=== PATIENT | female | born 1990 | race Caucasian/White ===

== ENCOUNTER 2021-01-23 12:32 | Emergency (ER) | payer MEDICAID, SELFPAY ==
--- NOTE | ~2021-01-23 | US_ITS ---
EXAM: Pelvic Ultrasound CLINICAL INDICATION: Elevated hCG. Patient is status post tubal ligation. Question ectopic . COMPARISON: None TECHNIQUE: The pelvis was evaluated using transabdominal and transvaginal imaging. FINDINGS: Retroflexed uterus measures approximately 10.3 x 4.9 x 5.2 cm in longitudinal by AP by transverse dimension. The endometrial stripe measures 1.6 cm. No intrauterine gestational sac identified. The left ovary measures approximately 2.6 x 2.5 x 2.2 cm and is normal. The right ovary measures approximately 2.0 x 1.4 x 1.7 cm and is also normal. There are no abnormal adnexal masses. There is no free fluid in the pelvis. US/US OB <= 14 weeks fetus IMPRESSION: -No intrauterine gestational sac and no abnormal adnexal mass identified. Correlation with serial beta hCGs recommended. Follow-up ultrasound imaging can be obtained as clinically indicated.
--- NOTE | ~2021-01-23 | US_ITS ---
EXAM: Pelvic Ultrasound CLINICAL INDICATION: Elevated hCG. Patient is status post tubal ligation. Question ectopic . COMPARISON: None TECHNIQUE: The pelvis was evaluated using transabdominal and transvaginal imaging. FINDINGS: Retroflexed uterus measures approximately 10.3 x 4.9 x 5.2 cm in longitudinal by AP by transverse dimension. The endometrial stripe measures 1.6 cm. No intrauterine gestational sac identified. The left ovary measures approximately 2.6 x 2.5 x 2.2 cm and is normal. The right ovary measures approximately 2.0 x 1.4 x 1.7 cm and is also normal. There are no abnormal adnexal masses. There is no free fluid in the pelvis. US/US OB transvaginal IMPRESSION: -No intrauterine gestational sac and no abnormal adnexal mass identified. Correlation with serial beta hCGs recommended. Follow-up ultrasound imaging can be obtained as clinically indicated.
[2021-01-23 13:04] VITALS: BP 133/66; PULSE 98; RESP 18; TEMP 36.9; O2SAT 100; BMI 37.2
[2021-01-23 13:25] LABS: MANUAL DIFF FLAG NO
[2021-01-23 13:27] LABS: Basophils Percent Auto 0.4 % (0-2); Eosinophils Absolute Auto 0.2 X10*3/uL (0.0-0.4); Eosinophils Percent Auto 2.8 % (0-4); Hematocrit 37.9 % (37-47); Hemoglobin 12.3 g/dl (12.0-16.0); Imm Gran Abs Auto 0.02 X10*3/uL (0.00-0.03); Imm Gran Pct Auto 0.2 % (0.0-0.4); Lymphocytes Absolute Auto 2.3 X10*3/uL (1.2-4.9); Lymphocytes Percent Auto 27.6 % (20-40); Mean Corpuscular HGB Conc 32.5 g/dl (31.0-35.0); Mean Corpuscular Hemoglobin 29.4 pg (27.0-33.0); Mean Corpuscular Volume 90.7 fL (80-98); Mean Platelet Volume 9.5 fL (9.4-12.3); Monocytes Absolute Auto 0.8 X10*3/uL (0.1-1.2); Monocytes Percent Auto 9.3 % (2-11); Neutrophils Absolute Auto 4.9 X10*3/uL (2.0-8.3); Neutrophils Percent Auto 59.7 % (45-73); Platelet Count 360 X10*3/uL (160-400); Red Blood Count 4.18 X10*6/uL (4.20-5.50); Red Cell Distribution Width 12.6 % (11.0-16.0); White Blood Count 8.2 X10*3/uL (4.8-10.8)
[2021-01-23 13:34] LABS: Glucose Urine UA NEG (NEG); Leukocyte Esterase Urine NEG (NEG); Nitrite Urine NEG (NEG); Urine Blood TRACE (NEG); Urine Ketones 5 MG/DL (NEG); Urine Protein NEG (NEG-TRACE)
[2021-01-23 13:42] LABS: Appearance Urine CLEAR; Color Urine YELLOW
[2021-01-23 13:43] LABS: UPreg QC Valid YES; Urine Pregnancy POSITIVE (NEGATIVE)
[2021-01-23 13:51] LABS: RBC Urine 0-2 /HPF (0); Squamous Epithelial Cell Urine TRACE /LPF; WBC Urine 0 /HPF (0-4)
[2021-01-23 13:54] LABS: Alanine Aminotransferase 17 U/L (0-31); Albumin Level 4.2 g/dL (3.5-5.0); Alkaline Phosphatase 78 U/L (39-117); Anion Gap 13 (12-20); Aspartate Amino Transferase 18 U/L (5-31); Bilirubin Total 0.9 mg/dL (0.0-1.0); Blood Urea Nitrogen 8 mg/dL (9-16); Calcium 8.9 mg/dL (8.4-10.2); Carbon Dioxide 22 mmol/L (22-29); Chloride 104 mmol/L (96-108); Creatinine Clr Calc Pharmacy 136.8; Estimated Glomerular Filt Rate > 60; Glucose Random 100 mg/dL (60-115); Potassium 4.1 mmol/L (3.3-5.1); Sodium 135 mmol/L (135-145); Total Protein 7.6 g/dL (6.5-8.0)
--- NOTE | 2021-01-23 17:57 | ED_ITS ---
HPI - Abdominal Pain General Chief Complaint: Abdominal Pain Stated Complaint: Abdominal pain Time Seen by Provider: 01/23/21 17:57 Source: patient Mode of arrival: ambulatory Limitations: no limitations History of Present Illness HPI narrative: Patient is status post tubal ligation about 12 years ago, noticed pain in lower abdomen for last few days missed her menstrual period This month check urine 4 times which were positive no vaginal bleeding Related Data Allergies Allergy/AdvReac Type Severity Reaction Status Date / Time No Known Allergies Allergy Verified 01/23/21 18:10 Review of Systems Review of Systems Constitutional : No Weight loss, No Fever, No Chills ENT/Mouth : No sore throat, No Rhinorrhea Eyes: No Eye Pain, No Swelling Cardiovascular : No Chest Pain, no palpitations Respiratory : No Cough, No Sputum, no shortness of breath Gastrointestinal : + Nausea, + Vomiting, No Diarrhea, + abdominal Pain, no black stools Genitourinary : No Dysuria, No Urinary Frequency Musculoskeletal : No joint pain, No Myalgias, No Joint Swelling Skin : No Skin Lesions, No rash Neuro : No Weakness, No Numbness, No Dizziness, No Headache Psych : No Anxiety/Panic, No Depression Heme/Lymph: No Bruising, No Lymphadenopathy Endocrine : No Polyuria, No Polydipsia All other systems reviewed and are negative Physical Exam Vital Signs: Vital Signs: Last Vital Signs Temp 98.4 F 01/23/21 20:16 Pulse 102 H 01/23/21 20:16 Resp 18 01/23/21 20:16 BP 113/43 L 01/23/21 20:16 Pulse Ox 100 01/23/21 13:04 Body Mass Index 37.2 Appearance: Alert. Oriented X3. No acute distress. Eyes: Pupils equal, round and reactive to light. ENT: Pharynx normal. Neck: Normal inspection. Neck supple. CVS: Normal heart rate and rhythm. Pulses normal. Respiratory: No respiratory distress. Breath sounds normal. Abdomen: Soft mild suprapubic tenderness Bowel sounds are present, no mass palpable, no CVA tenderness Skin: Skin warm and dry. Normal skin color. Normal skin turgor. Extremities: No lower extremity edema. Neuro: Oriented X 3. No motor deficit. No sensory deficit. MDM - Abdominal Pain MDM Narrative Medical decision making narrative: Patient about 5 weeks no IUP/ gestation sac was seen HCG is only 474 patient has no significant lower abdominal pain. Advised to follow up with haul cane brakeman in next 2 -3 days Lab Data Attestation: I reviewed the patient's lab results. Result diagrams: 01/23/21 13:18 01/23/21 13:18 Labs: Lab Results 01/23/21 01/23/21 01/23/21 Range/Units 13:18 13:18 13:18 WBC 8.2 (4.8-10.8) X10*3/uL RBC 4.18 L (4.20-5.50) X10*6/uL Hgb 12.3 (12.0-16.0) g/dl Hct 37.9 (37-47) % MCV 90.7 (80-98) fL MCH 29.4 (27.0-33.0) pg MCHC 32.5 (31.0-35.0) g/dl RDW 12.6 (11.0-16.0) % Plt Count 360 (160-400) X10*3/uL MPV 9.5 (9.4-12.3) fL Immature Gran % (Auto) 0.2 (0.0-0.4) % Neut % (Auto) 59.7 (45-73) % Lymph % (Auto) 27.6 (20-40) % [place] % (Auto) 9.3 (2-11) % Eos % (Auto) 2.8 (0-4) % Baso % (Auto) 0.4 (0-2) % Lymph # (Auto) 2.3 (1.2-4.9) X10*3/uL [place] # (Auto) 0.8 (0.1-1.2) X10*3/uL Eos # (Auto) 0.2 (0.0-0.4) X10*3/uL Baso # (Auto) 0.0 (0.0-0.2) X10*3/uL Abs Immat Gran (auto) 0.02 (0.00-0.03) X10*3/uL Absolute Neuts (auto) 4.9 (2.0-8.3) X10*3/uL Absolute Nucleated RBC 0.000 (0.0-0.012) X10*3/uL Nucleated RBC % (auto) 0.0 (0.0-0.2) /100WBC Hold Blue Top SEE NOTE Sodium 135 (135-145) mmol/L Potassium 4.1 (3.3-5.1) mmol/L Chloride 104 (96-108) mmol/L Carbon Dioxide 22 (22-29) mmol/L Anion Gap 13 (12-20) BUN 8 L (9-16) mg/dL Creatinine 0.66 (0.5-1.4) mg/dL Estim Creat Clear Calc 136.8 Estimated GFR > 60 Random Glucose 100 (60-115) mg/dL Calcium 8.9 (8.4-10.2) mg/dL Total Bilirubin 0.9 (0.0-1.0) mg/dL AST 18 (5-31) U/L ALT 17 (0-31) U/L Alkaline Phosphatase 78 (39-117) U/L Total Protein 7.6 (6.5-8.0) g/dL Albumin 4.2 (3.5-5.0) g/dL Beta HCG, Quant 474 mIU/mL Urine Color Urine Appearance Urine pH (5.0-8.0) Ur Specific [place] (1.005-1.025) Urine Protein (NEG-TRACE) MG/DL Urine Glucose (UA) (NEG) MG/DL Urine Ketones (NEG) MG/DL Urine Blood (NEG) Urine Nitrite (NEG) Ur Leukocyte Esterase (NEG) Urine RBC (0) /HPF Urine WBC (0-4) /HPF Ur Squamous Epith Cells /LPF Urine Bacteria /LPF Urine Test (NEGATIVE) 01/23/21 01/23/21 Range/Units 13:18 13:18 WBC (4.8-10.8) X10*3/uL RBC (4.20-5.50) X10*6/uL Hgb (12.0-16.0) g/dl Hct (37-47) % MCV (80-98) fL MCH (27.0-33.0) pg MCHC (31.0-35.0) g/dl RDW (11.0-16.0) % Plt Count (160-400) X10*3/uL MPV (9.4-12.3) fL Immature Gran % (Auto) (0.0-0.4) % Neut % (Auto) (45-73) % Lymph % (Auto) (20-40) % [place] % (Auto) (2-11) % Eos % (Auto) (0-4) % Baso % (Auto) (0-2) % Lymph # (Auto) (1.2-4.9) X10*3/uL [place] # (Auto) (0.1-1.2) X10*3/uL Eos # (Auto) (0.0-0.4) X10*3/uL Baso # (Auto) (0.0-0.2) X10*3/uL Abs Immat Gran (auto) (0.00-0.03) X10*3/uL Absolute Neuts (auto) (2.0-8.3) X10*3/uL Absolute Nucleated RBC (0.0-0.012) X10*3/uL Nucleated RBC % (auto) (0.0-0.2) /100WBC Hold Blue Top Sodium (135-145) mmol/L Potassium (3.3-5.1) mmol/L Chloride (96-108) mmol/L Carbon Dioxide (22-29) mmol/L Anion Gap (12-20) BUN (9-16) mg/dL Creatinine (0.5-1.4) mg/dL Estim Creat Clear Calc Estimated GFR Random Glucose (60-115) mg/dL Calcium (8.4-10.2) mg/dL Total Bilirubin (0.0-1.0) mg/dL AST (5-31) U/L ALT (0-31) U/L Alkaline Phosphatase (39-117) U/L Total Protein (6.5-8.0) g/dL Albumin (3.5-5.0) g/dL Beta HCG, Quant mIU/mL Urine Color YELLOW Urine Appearance CLEAR Urine pH 7.0 (5.0-8.0) Ur Specific [place] 1.010 (1.005-1.025) Urine Protein NEG (NEG-TRACE) MG/DL Urine Glucose (UA) NEG (NEG) MG/DL Urine Ketones 5 (NEG) MG/DL Urine Blood TRACE (NEG) Urine Nitrite NEG (NEG) Ur Leukocyte Esterase NEG (NEG) Urine RBC 0-2 (0) /HPF Urine WBC 0 (0-4) /HPF Ur Squamous Epith Cells TRACE /LPF Urine Bacteria NONE /LPF Urine Test POSITIVE H (NEGATIVE) Discharge Plan Discharge Clinical Impression: at early stage Patient Disposition: Home, Self-Care Instructions: (ED) Additional Instructions: Report to the ER if any lower abdominal pain. Or vaginal bleed Follow-up with OB doctor Informe a la tran de emergencias si tiene alg?n dolor en la parte inferior del abdomen. O sangrado vaginal Seguimiento con el m?dico obstetra Referrals: Bharat Umaña MD [Physician] - 1 week Print Language: Estonian [facility] Past Medical History Medical History No active medical problems Social History Social History Advance Directives: No Advance Directives Information Provided: Yes
[2021-01-23 18:29] VITALS: BP 109/65; PULSE 99; RESP 18; TEMP 37
[2021-01-23 18:38] LABS: HCG Quantitative 474 mIU/mL
[2021-01-23 20:16] VITALS: BP 113/43; PULSE 102; RESP 18; TEMP 36.9
== END 2021-01-23 21:03 | disposition home or self-care (01) ==
PROVIDERS: Emergency Provider Internal Medicine
DX: O26.91 Pregnancy related conditions, unspecified, first trimester (principal); R10.30 Lower abdominal pain, unspecified; Z3A.01 Less than 8 weeks gestation of pregnancy
CPT/HCPCS: 36415; 76801; 76817; 80053; 81001; 81025; 84702; 85025; 99283; 99284

== ENCOUNTER 2021-02-06 08:19 | Outpatient (REF) | payer MEDICAID, SELFPAY ==
[2021-02-06 11:03] LABS: HCG Quantitative 6 mIU/mL
== END 2021-02-06 08:20 | disposition home or self-care (01) ==
LOC: HO.LAB 08:19
PROVIDERS: Visit Provider Obstetrics & Gynecology
DX: O00.90 Unspecified ectopic pregnancy without intrauterine pregnancy (principal)
CPT/HCPCS: 36415; 84702; 99202

== ENCOUNTER → 2021-02-19 15:09 | Outpatient (BNVA) | payer MEDICAID, SELFPAY | PROVIDERS: Visit Provider Obstetrics & Gynecology ==

== ENCOUNTER 2021-02-20 14:16 | Outpatient (REF) | payer MEDICAID, SELFPAY ==
[2021-02-20 15:37] LABS: HCG Quantitative < 2 mIU/mL
== END 2021-02-20 14:17 | disposition home or self-care (01) ==
LOC: HO.LAB 14:16
PROVIDERS: PCP Family Medicine; Visit Provider Obstetrics & Gynecology
DX: O00.90 Unspecified ectopic pregnancy without intrauterine pregnancy (principal)
CPT/HCPCS: 36415; 84702

== ENCOUNTER → 2021-11-15 15:31 | Outpatient (BNVA) | payer MEDICAID, SELFPAY | PROVIDERS: PCP Family Medicine; Referring Provider Family Medicine; Visit Provider Physician Assistant ==

== ENCOUNTER → 2021-12-20 08:11 | Outpatient (BNVA) | payer MEDICAID, SELFPAY | PROVIDERS: PCP Family Medicine; Visit Provider Surgery ==

== ENCOUNTER 2021-12-26 11:35 | Outpatient (REF) | payer MEDICAID, SELFPAY ==
--- NOTE | ~2021-12-26 | XR_ITS ---
EXAMINATION: XR CHEST CLINICAL INFORMATION: Morbid obesity COMPARISON: None TECHNIQUE: 2 views of the chest were obtained. FINDINGS: Cardiac silhouette is normal in size. Lungs are well aerated. There is no lobar consolidation. No pleural effusion or pneumothorax. No acute osseous abnormality. XR/XR chest 2V IMPRESSION: No acute pulmonary pathology.
--- NOTE | 2021-12-26 11:40 | ECG_ITS ---
Test Reason : E66.01 Blood Pressure : / mmHG Vent. Rate : 086 BPM Atrial Rate : 086 BPM P-R Int : 140 ms QRS Dur : 068 ms QT Int : 374 ms P-R-T Axes : 063 013 029 degrees QTc Int : 447 ms Normal sinus rhythm Normal ECG No previous ECGs available Referred By: Tano Brewer Electronically Signed By:DIANA TOBIN MD
[2021-12-26 12:02] LABS: MANUAL DIFF FLAG NO
[2021-12-26 12:17] LABS: Basophils Percent Auto 0.3 % (0-2); Eosinophils Absolute Auto 0.4 X10*3/uL (0.0-0.4); Eosinophils Percent Auto 3.8 % (0-4); Hematocrit 41.1 % (37.0-47.0); Imm Gran Abs Auto 0.03 X10*3/uL (0.00-0.03); Imm Gran Pct Auto 0.3 % (0.0-0.4); Lymphocytes Absolute Auto 2.3 X10*3/uL (1.2-4.9); Mean Corpuscular HGB Conc 31.6 g/dl (31.0-35.0); Mean Corpuscular Hemoglobin 28.6 pg (27.0-33.0); Mean Corpuscular Volume 90.3 fL (80.0-98.0); Mean Platelet Volume 9.9 fL (9.4-12.3); Monocytes Absolute Auto 0.8 X10*3/uL (0.1-1.2); Monocytes Percent Auto 8.5 % (2-11); Neutrophils Percent Auto 63.1 % (45-73); Platelet Count 345 X10*3/uL (160-400); Red Blood Count 4.55 X10*6/uL (4.20-5.50); Red Cell Distribution Width 13.3 % (11.0-16.0); White Blood Count 9.5 X10*3/uL (4.8-10.8)
[2021-12-26 12:58] LABS: Estimated Average Glucose 111 mg/dL; Hemoglobin A1c % 5.5 %
[2021-12-26 13:33] LABS: Folate 12.3 ng/mL (> or = 4.0); Vitamin B12 203 pg/mL (200-900)
[2021-12-26 14:24] LABS: Alanine Aminotransferase 20 U/L (0-31); Albumin Level 4.1 g/dL (3.5-5.0); Alkaline Phosphatase 84 U/L (39-117); Anion Gap 12 (12-20); Aspartate Amino Transferase 15 U/L (5-31); Bilirubin Total 0.6 mg/dL (0.0-1.0); Blood Urea Nitrogen 8 mg/dL (9-16); Calcium 9.4 mg/dL (8.4-10.2); Carbon Dioxide 25 mmol/L (22-29); Chloride 106 mmol/L (96-108); Cholesterol 177 mg/dL; Estimated Glomerular Filt Rate > 60; Glucose Random 105 mg/dL (60-115); HDL Cholesterol 47 mg/dL; Iron 62 mcg/dL (30-160); LDL Cholesterol Calculated 112 mg/dl; Percent Iron Saturation 16 % (15-50); Potassium 4.7 mmol/L (3.3-5.1); Sodium 138 mmol/L (135-145); Total Iron Binding Capacity 385 mcg/dL (228-428); Total Protein 7.7 g/dL (6.5-8.0); Triglycerides 91 mg/dL; Unsaturated Iron Binding 323 ug/dL
[2021-12-26 14:34] LABS: Ferritin 37 ng/mL (10-122); Insulin 14 uU/mL (2-29); TSH reflex Free T4 1.15 uIU/mL (0.32-4.0); Vitamin D 25-OH Total 10.5 ng/mL (>30)
[2021-12-27 15:45] LABS: Calcium (PTHI) 9.5 mg/dL (8.6-10.2); PTHI 80 pg/mL (16-77)
[2021-12-31 03:37] LABS: Zinc 84 mcg/dL (60-130)
[2021-12-31 15:35] LABS: Vitamin B1 7 nmol/L (8-30)
[2022-01-02 10:57] LABS: Vitamin A 33 mcg/dL (38-98)
== END 2021-12-26 11:36 | disposition home or self-care (01) ==
LOC: HO.XRAY 11:35
PROVIDERS: Visit Provider Surgery
DX: Z01.818 Encounter for other preprocedural examination (principal); E66.01 Morbid (severe) obesity due to excess calories
CPT/HCPCS: 36415; 71046; 80053; 80061; 82306; 82607; 82728; 82746; 83036; 83525; 83540; 83970; 84425; 84443; 84590; 84630; 85025; 86140; 93005

== ENCOUNTER → 2022-01-01 12:58 | Outpatient (BNVA) | payer MEDICAID, SELFPAY | PROVIDERS: PCP Family Medicine; Referring Provider Family Medicine; Visit Provider Physician Assistant Surgical | DX: A04.8 Other specified bacterial intestinal infections (principal) | CPT/HCPCS: 99211 ==

== ENCOUNTER 2022-01-01 15:14 | Outpatient (REF) | payer MEDICAID, SELFPAY ==
[2022-01-02 14:31] LABS: H Pylori Breath Test Positive (Negative)
== END 2022-01-01 15:15 | disposition home or self-care (01) ==
LOC: HO.LNP 15:14
PROVIDERS: Visit Provider Surgery
DX: E66.01 Morbid (severe) obesity due to excess calories (principal)
CPT/HCPCS: 83013

== ENCOUNTER 2022-01-15 | Outpatient (REF) | payer MEDICAID, SELFPAY ==
[2022-02-11 12:58] LABS: H Pylori Breath Test Negative (Negative)
== END 2022-01-15 00:01 ==
LOC: HO.LAB
PROVIDERS: Physician Assistant; Visit Provider Surgery
DX: Z01.818 Encounter for other preprocedural examination (principal); Z11.0 Encounter for screening for intestinal infectious diseases
CPT/HCPCS: 36415; 83013

== ENCOUNTER → 2022-01-16 08:08 | Outpatient (BNVA) | payer MEDICAID, SELFPAY | PROVIDERS: PCP Family Medicine; Visit Provider Dietitian, Registered | DX: Z13.89 Encounter for screening for other disorder (principal) ==

== ENCOUNTER → 2022-01-27 08:02 | Outpatient (BNVA) | payer MEDICAID, SELFPAY | PROVIDERS: PCP Family Medicine; Visit Provider Surgery | DX: Z13.89 Encounter for screening for other disorder (principal) ==

== ENCOUNTER → 2022-01-29 08:07 | Outpatient (BNVA) | payer MEDICAID, SELFPAY | PROVIDERS: PCP Family Medicine; Visit Provider Dietitian, Registered | DX: E66.01 Morbid (severe) obesity due to excess calories (principal); Z68.39 Body mass index [BMI] 39.0-39.9, adult; Z71.3 Dietary counseling and surveillance | CPT/HCPCS: 97802 ==

== ENCOUNTER 2022-02-07 09:01 | Outpatient (REF) | payer MEDICAID, SELFPAY ==
--- NOTE | ~2022-02-07 | FL_ITS ---
EXAMINATION: XR FLUOROSCOPY UPPER GI WITH AIR CLINICAL INFORMATION: Obesity COMPARISON: None TECHNIQUE: The patient was administered thin and thick barium and effervescent granules. FINDINGS: There is a small sliding hiatal hernia. No gastroesophageal reflux is seen. Esophageal motility is normal. The stomach and duodenum are normal-appearing. No fold thickening, mass, ulcer or stricture is seen. FLUOROSCOPY TIME: 0.7 minutes DOSE AREA PRODUCT: 6 cervantes per centimeter squared. 26 saved fluoroscopic images. FL/FL upper GI w air IMPRESSION: Small sliding-type hiatal hernia otherwise unremarkable exam
== END 2022-02-07 09:02 | disposition home or self-care (01) ==
LOC: HO.XRAY 09:01
PROVIDERS: Visit Provider Surgery
DX: E66.01 Morbid (severe) obesity due to excess calories (principal)
CPT/HCPCS: 74246

== ENCOUNTER → 2022-02-10 12:55 | Outpatient (BNVA) | payer MEDICAID, SELFPAY | PROVIDERS: PCP Family Medicine; Referring Provider Family Medicine; Visit Provider Physician Assistant | DX: Z11.0 Encounter for screening for intestinal infectious diseases (principal) | CPT/HCPCS: 99211 ==

== ENCOUNTER 2022-02-11 12:53 | Outpatient (REF) | payer MEDICAID, SELFPAY ==
--- NOTE | ~2022-02-11 | US_ITS ---
EXAMINATION: US COMPLETE ABDOMEN WITH LIVER ELASTOGRAPHY CLINICAL INFORMATION: Morbid/severe obesity. COMPARISON: None. TECHNIQUE: Real-time imaging of the abdominal viscera. Noninvasive ultrasound liver fibrosis assessment is performed using Nilam ElastPQ point quantification shear wave elastography (2D-SWE) with a C5-2 MHz transducer. Multiple elastography samples are obtained. FINDINGS: PANCREAS: Normal. The visualized pancreatic head and body are normal in appearance. The remainder of the pancreas is obscured from visualization by the overlying bowel gas. ABDOMINAL AORTA: The proximal, middle, and distal aortic segments are normal in caliber. INFERIOR VENA CAVA: Visualized portions are normal. LIVER: The liver demonstrates normal size, contour and echogenicity. No focal lesion or intrahepatic biliary duct dilatation. The right lobe measures 13.5 cm in length. The left lobe measures 10.8 cm in length. Portal flow is hepatopedal. Shear wave liver elastography median stiffness is 2.08 m/s (reference: normal median stiffness is 1.3 m/s or less). IQR/median stiffness to assess sampling precision is 0.10 (reference: good quality data set is IQR/median stiffness of 0.15 or less). GALLBLADDER: Normal. The gallbladder is physiologically distended without evidence of stones, sludge, polyps, wall thickening or pericholecystic fluid. COMMON BILE DUCT: Normal in caliber measuring 0.21 cm in diameter. RIGHT KIDNEY: Normal. No hydronephrosis. No renal calculi or focal parenchymal lesions. The kidney measures 10.3 cm in maximum dimension. LEFT KIDNEY: Normal. No hydronephrosis. No renal calculi or focal parenchymal lesions. The kidney measures 11.6 cm in maximum dimension. SPLEEN: Normal. The spleen measures 9.8 cm in maximum dimension. FREE FLUID: None. US/US abdomen comp w elastography IMPRESSION: 1. Unremarkable complete abdomen ultrasound. 2. Liver elastography: Median liver stiffness 2.08 m/s corresponds to cACLD suggestive. REFERENCE: Society of Radiologists in Ultrasound Liver Stiffness Thresholds (2020): LIVER STIFFNESS THRESHOLDS: *Liver Stiffness equal or less than 1.3 m/s: High probability of being normal. *Liver Stiffness less than 1.7 m/s: In the absence of other known clinical signs, rules out compensated advanced chronic liver disease. *Liver Stiffness 1.7-2.1 m/s: Suggestive of compensated advanced chronic liver disease but need further test for confirmation. *Liver Stiffness over 2.1 m/s: Rules in compensated advanced chronic liver disease. *Liver Stiffness over 2.4 m/s: Suggestive of clinically significant portal hypertension. QUALITY OF DATA SET: *IQR/Median value equal or less than 0.15 implies a quality data set. *IQR/Median value over 0.15 implies a poor quality data set. SIGNIFICANT CHANGE FROM PRIOR EXAM: Significant change if liver stiffness measurement is 10% or greater from prior exam. OTHER CONSIDERATIONS: The stage of liver fibrosis may be overestimated in the setting of acute hepatitis, liver inflammation, elevated liver function tests, hepatic vascular congestion, obstructive cholestasis, non-fasting state, and infiltrative diseases such as amyloidosis and lymphoma. In some patients with NAFLD, the liver stiffness thresholds for compensated advanced chronic liver disease may be lower. In causes other than viral hepatitis and NAFLD, liver stiffness thresholds are not well established.
== END 2022-02-11 12:54 | disposition home or self-care (01) ==
LOC: HO.US 12:53
PROVIDERS: Visit Provider Surgery
DX: Z01.818 Encounter for other preprocedural examination (principal); E66.01 Morbid (severe) obesity due to excess calories; K21.9 Gastro-esophageal reflux disease without esophagitis
CPT/HCPCS: 76705; 76981

== ENCOUNTER → 2022-02-26 13:53 | Outpatient (BNVA) | payer MEDICAID, SELFPAY | PROVIDERS: PCP Family Medicine; Referring Provider Family Medicine; Visit Provider Dietitian, Registered | DX: E66.01 Morbid (severe) obesity due to excess calories (principal) | CPT/HCPCS: 97803 ==

== ENCOUNTER → 2022-04-11 14:52 | Outpatient (BNVA) | payer MEDICAID, SELFPAY | PROVIDERS: PCP Family Medicine; Referring Provider Family Medicine; Visit Provider Dietitian, Registered | DX: E66.9 Obesity, unspecified (principal); Z68.35 Body mass index [BMI] 35.0-35.9, adult; Z71.3 Dietary counseling and surveillance | CPT/HCPCS: 97803 ==

== ENCOUNTER → 2022-05-14 15:59 | Outpatient (BNVA) | payer MEDICAID, SELFPAY | PROVIDERS: PCP Family Medicine; Visit Provider Physician Assistant Surgical | DX: Z01.818 Encounter for other preprocedural examination (principal); E66.9 Obesity, unspecified; Z68.35 Body mass index [BMI] 35.0-35.9, adult | CPT/HCPCS: 99212 ==

== ENCOUNTER 2022-05-16 | Outpatient (REF) | payer MEDICAID, SELFPAY ==
[2022-05-15 15:46] VITALS: BMI 35.3
[2022-05-16 10:51] LABS: MANUAL DIFF FLAG NO
[2022-05-16 11:29] LABS: Basophils Percent Auto 0.3 % (0-2); Eosinophils Absolute Auto 0.2 X10*3/uL (0.0-0.4); Eosinophils Percent Auto 2.4 % (0-4); Hematocrit 38.8 % (37.0-47.0); Hemoglobin 12.6 g/dl (12.0-16.0); Imm Gran Abs Auto 0.02 X10*3/uL (0.00-0.03); Imm Gran Pct Auto 0.2 % (0.0-0.4); Lymphocytes Absolute Auto 1.8 X10*3/uL (1.2-4.9); Lymphocytes Percent Auto 20.6 % (20-40); Mean Corpuscular HGB Conc 32.5 g/dl (31.0-35.0); Mean Corpuscular Hemoglobin 28.7 pg (27.0-33.0); Mean Corpuscular Volume 88.4 fL (80.0-98.0); Mean Platelet Volume 10.1 fL (9.4-12.3); Monocytes Percent Auto 11.7 % (2-11); Neutrophils Absolute Auto 5.7 x10*3/uL (2.0-8.3); Neutrophils Percent Auto 64.8 % (45-73); Platelet Count 368 X10*3/uL (160-400); Red Blood Count 4.39 X10*6/uL (4.20-5.50); Red Cell Distribution Width 13.2 % (11.0-16.0); White Blood Count 8.8 X10*3/uL (4.8-10.8)
[2022-05-16 11:38] LABS: Estimated Average Glucose 103 mg/dL; Hemoglobin A1c % 5.2 %
[2022-05-16 11:46] LABS: Prothrombin Time 11.8 SEC (10.0-13.1)
[2022-05-16 11:48] LABS: Partial Thromboplastin Time 33.7 SEC (26.0-36.4)
[2022-05-16 12:01] LABS: Alanine Aminotransferase 11 U/L (0-31); Albumin Level 3.9 g/dL (3.5-5.0); Alkaline Phosphatase 65 U/L (39-117); Anion Gap 13 (12-20); Aspartate Amino Transferase 12 U/L (5-31); Bilirubin Total 0.8 mg/dL (0.0-1.0); Blood Urea Nitrogen 8 mg/dL (9-16); C Reactive Protein 1.48 mg/dL (< or = 0.50); Calcium 8.7 mg/dL (8.4-10.2); Carbon Dioxide 22 mmol/L (22-29); Chloride 107 mmol/L (96-108); Cholesterol 137 mg/dL; Creatinine Clr Calc Pharmacy 126.8; Estimated Glomerular Filt Rate > 60; Glucose Random 91 mg/dL (60-115); HDL Cholesterol 42 mg/dL; LDL Cholesterol Calculated 85 mg/dl; Potassium 4.1 mmol/L (3.3-5.1); Sodium 138 mmol/L (135-145); Total Protein 7.2 g/dL (6.5-8.0); Triglycerides 54 mg/dL
[2022-05-16 12:21] LABS: TSH reflex Free T4 0.98 uIU/mL (0.32-4.0)
--- NOTE | 2022-05-24 14:36 | MHC.SHP ---
Pre-Procedural Eval Section A Date of Service: 05/24/22 The patient is an INPATIENT: Yes The History & Physical has been completed within 30 days and I have reviewed it.: Yes Section B Chief Complaint: obesity Relevant Family History (Specify if Yes): No Relevant Social History: None Present Medications: None Medical History: No relevant PMH History of Previous Operations: No relevant previous surgery Allergies: Allergies Allergy/AdvReac Type Severity Reaction Status Date / Time No Known Allergies Allergy Verified 05/14/22 16:08 Review of Systems Sugical H&P ROS: Negative: Constitution, Cardiovascular, Respiratory, Neurological, Psychiatric, Hem-Onc, Allergic/Immunologic, Gastrointestinal, Genitourinary, Musculoskeletal, Integumentary, Endocrine and Eyes/Ears/Nose/Throat Exam Surgical H&P Exam: Normal: HEENT, Normal: Heart, Normal: Lungs, Normal: Extremities, Normal: Abdomen, Normal: Skin and Normal: Neurological Plan Diagnosis/Plan: Unchanged I have reviewed the history and physical and performed a pertinent physical examination on my patient. No changes have occurred unless specified.
== END 2022-05-16 00:01 ==
LOC: HO.PAT
PROVIDERS: Physician Assistant Surgical; Visit Provider Surgery
DX: Z01.818 Encounter for other preprocedural examination (principal); E66.9 Obesity, unspecified
CPT/HCPCS: 36415; 80053; 80061; 83036; 84443; 85025; 85610; 85730; 86140; 86850; 86900; 86901

== ENCOUNTER 2023-04-20 16:37 | Outpatient (REF) | payer MEDICAID, SELFPAY ==
[2023-04-20 18:41] LABS: Alanine Aminotransferase 15 U/L (0-31); Alkaline Phosphatase 66 U/L (39-117); Anion Gap 13 (12-20); Aspartate Amino Transferase 16 U/L (5-31); Bilirubin Total 0.3 mg/dL (0.0-1.0); Blood Urea Nitrogen 11 mg/dL (9-16); Calcium 8.8 mg/dL (8.4-10.2); Carbon Dioxide 22 mmol/L (22-29); Chloride 105 mmol/L (96-108); Estimated Glomerular Filt Rate > 60; Glucose Random 87 mg/dL (60-115); Potassium 3.6 mmol/L (3.3-5.1); Sodium 136 mmol/L (135-145); Total Protein 7.5 g/dL (6.5-8.0)
[2023-04-20 18:55] LABS: Syphilis Screen Nonreactive (Nonreactive)
[2023-04-20 18:56] LABS: Thyroid Stimulating Hormone 0.99 uIU/mL (0.32-4.0)
[2023-04-21 05:30] LABS: ~HepC Num1 0.12 S/CO (0.00-0.79); ~Hepatitis C Antibody Nonreactive (Nonreactive)
[2023-04-21 12:35] LABS: CT PCR NOT DETECTED (Not Detect.); NG PCR NOT DETECTED (Not Detect.)
[2023-04-23 15:38] LABS: HIV RNA PCR Qn Copies NOT DETECTED copies/mL (NOT DETECTED); HIV RNA PCR Qn Log Copies NOT DETECTED (NOT DETECTED)
== END 2023-04-20 16:38 | disposition home or self-care (01) ==
LOC: HO.HHCL 16:37
PROVIDERS: Visit Provider General Practice
DX: Z11.3 Encounter for screening for infections with a predominantly sexual mode of transmission (principal); Z11.4 Encounter for screening for human immunodeficiency virus [HIV]; E66.9 Obesity, unspecified
CPT/HCPCS: 0353U; 80053; 84443; 86780; 86803; 87536

== ENCOUNTER 2023-08-31 09:37 | Outpatient (REF) | payer MEDICAID, SELFPAY ==
[2023-08-31 11:11] LABS: MANUAL DIFF FLAG NO
[2023-08-31 11:32] LABS: Basophils Percent Auto 0.6 % (0-2); Eosinophils Absolute Auto 0.3 X10*3/uL (0.0-0.4); Eosinophils Percent Auto 5.2 % (0-4); Hematocrit 42.3 % (37.0-47.0); Hemoglobin 13.5 g/dl (12.0-16.0); Imm Gran Abs Auto 0.01 X10*3/uL (0.00-0.03); Imm Gran Pct Auto 0.2 % (0.0-0.4); Lymphocytes Absolute Auto 2.4 X10*3/uL (1.2-4.9); Mean Corpuscular HGB Conc 31.9 g/dl (31.0-35.0); Mean Corpuscular Volume 90.8 fL (80.0-98.0); Mean Platelet Volume 9.7 fL (9.4-12.3); Monocytes Absolute Auto 0.7 X10*3/uL (0.1-1.2); Monocytes Percent Auto 10.3 % (2-11); Neutrophils Absolute Auto 2.9 x10*3/uL (2.0-8.3); Neutrophils Percent Auto 45.7 % (45-73); Platelet Count 382 X10*3/uL (160-400); Red Blood Count 4.66 X10*6/uL (4.20-5.50); Red Cell Distribution Width 12.5 % (11.0-16.0); White Blood Count 6.3 X10*3/uL (4.8-10.8)
== END 2023-08-31 09:38 | disposition home or self-care (01) ==
LOC: HO.HHCL 09:37
PROVIDERS: Visit Provider General Practice
DX: R09.A2 Foreign body sensation, throat (principal)
CPT/HCPCS: 36415; 84443; 85025

== ENCOUNTER 2023-09-23 14:53 | Outpatient (RCR) | payer MEDICAID, SELFPAY | END 2023-12-11 12:57 | disposition home or self-care (01) | LOC: HO.OT 14:53 | PROVIDERS: PCP General Practice; Visit Provider General Practice | DX: G56.22 Lesion of ulnar nerve, left upper limb (principal) | CPT/HCPCS: 97035; 97166; 97535 ==

== ENCOUNTER 2024-02-02 12:14 | Outpatient (REF) | payer MEDICAID, SELFPAY ==
[2024-02-02 16:46] LABS: Alanine Aminotransferase 12 U/L (0-31); Albumin Level 4.1 g/dL (3.5-5.0); Alkaline Phosphatase 60 U/L (39-117); Anion Gap 12 (12-20); Aspartate Amino Transferase 16 U/L (5-31); Bilirubin Total 0.3 mg/dL (0.0-1.0); Blood Urea Nitrogen 9 mg/dL (9-16); Calcium 9.1 mg/dL (8.4-10.2); Carbon Dioxide 23 mmol/L (22-29); Chloride 107 mmol/L (96-108); Estimated Glomerular Filt Rate > 60; Glucose Random 90 mg/dL (60-115); Potassium 4.2 mmol/L (3.3-5.1); Sodium 138 mmol/L (135-145); Total Protein 7.6 g/dL (6.5-8.0)
== END 2024-02-02 12:15 | disposition home or self-care (01) ==
LOC: HO.HHCL 12:14
PROVIDERS: Visit Provider General Practice
DX: R17 Unspecified jaundice (principal)
CPT/HCPCS: 36415; 80053

== ENCOUNTER 2024-07-27 14:55 | Outpatient (REF) | payer MEDICAID, SELFPAY ==
[2024-07-27 18:34] LABS: CT PCR NOT DETECTED (Not Detect.); NG PCR NOT DETECTED (Not Detect.)
[2024-07-28 08:38] LABS: HIV AB/AG Nonreactive (Nonreactive); HIV Num 1 0.05 S/CO (0.00-0.99); ~HepC Num1 0.14 S/CO (0.00-0.79); ~Hepatitis C Antibody Nonreactive (Nonreactive)
[2024-07-29 15:28] LABS: RPR Rapid Plasma Reagin NON-REACTIVE (NON-REACTIVE)
== END 2024-07-27 14:56 | disposition home or self-care (01) ==
LOC: HO.HHCL 14:55
PROVIDERS: Visit Provider General Practice
DX: Z11.3 Encounter for screening for infections with a predominantly sexual mode of transmission (principal)
CPT/HCPCS: 36415; 86592; 86803; 87389; 87491; 87591

== ENCOUNTER 2025-01-19 11:27 | Outpatient (REF) | payer MEDICAID, SELFPAY ==
[2025-01-19 13:32] LABS: Basophils Percent Auto 0.3 % (0-2); Eosinophils Absolute Auto 0.2 X10*3/uL (0.0-0.4); Eosinophils Percent Auto 3.6 % (0-4); Hematocrit 40.9 % (37.0-47.0); Hemoglobin 13.5 g/dl (12.0-16.0); Imm Gran Abs Auto 0.02 X10*3/uL (0.00-0.03); Imm Gran Pct Auto 0.3 % (0.0-0.4); Lymphocytes Absolute Auto 2.1 X10*3/uL (1.2-4.9); Lymphocytes Percent Auto 34.6 % (20-40); MANUAL DIFF FLAG SCAN; Mean Corpuscular Hemoglobin 29.7 pg (27.0-33.0); Mean Corpuscular Volume 89.9 fL (80.0-98.0); Monocytes Absolute Auto 0.5 X10*3/uL (0.1-1.2); Monocytes Percent Auto 7.8 % (2-11); Neutrophils Absolute Auto 3.3 x10*3/uL (2.0-8.3); Neutrophils Percent Auto 53.4 % (45-73); PLT CLUMP 1; Red Blood Count 4.55 X10*6/uL (4.20-5.50); Red Cell Distribution Width 13.1 % (11.0-16.0); SCAN SMEAR FLAG 1
[2025-01-19 13:37] LABS: White Blood Count 6.2 X10*3/uL (4.8-10.8)
[2025-01-19 13:49] LABS: Mean Platelet Volume 11.1 fL (9.4-12.3); Platelet Count 284 X10*3/uL (160-400); SLIDE REVIEW VERIFIED
[2025-01-19 13:55] LABS: Alanine Aminotransferase 13 U/L (0-31); Albumin Level 4.2 g/dL (3.5-5.0); Anion Gap 12 (12-20); Aspartate Amino Transferase 24 U/L (5-31); Bilirubin Total 0.2 mg/dL (0.0-1.0); Blood Urea Nitrogen 9 mg/dL (9-16); Calcium 9.1 mg/dL (8.4-10.2); Carbon Dioxide 24 mmol/L (22-29); Chloride 106 mmol/L (96-108); Estimated Glomerular Filt Rate > 60; Glucose Random 90 mg/dL (60-115); Potassium 4.1 mmol/L (3.3-5.1); Sodium 138 mmol/L (135-145)
[2025-01-19 14:05] LABS: TSH reflex Free T4 1.03 uIU/mL (0.32-4.0)
[2025-01-19 14:09] LABS: Alkaline Phosphatase 53 U/L (39-117)
--- OUTSIDE RECORDS SUMMARY | 2025-01-19 14:18 | XMS_ITS | Encounter Summary ---
Demographics Address [address] [place] [address] Work Phone Mobile Phone Home Phone Email Address Preferred Language es Marital Status Single Latter Day Affiliation Unknown Race White Ethnic Group or Author Organization [employer] Address [address] [place] [address] Care Team Providers Care Woodworking Shop Laborer Name Role Phone Khushboo Diaz MD Primary Care Provider [phone] Encounter Details Date Type Department Care Team ([facility] st Contact Info) Description 01/19/2025 Orders Only [facility] [address] [place], [place] [id number] Shayy Davis, ANP [address] [place], [place] [id number] Social History Tobacco Use Types Packs/Day Years Used Date Smoking Tobacco: Never Passive Smoke Exposure: Never Smokeless Tobacco: Never Alcohol Use Standard Drinks/Week Comments Yes 0 (1 standard drink = 0.6 oz pur e alcohol) oca Depression Answer Date Recorded Patient Health Questionnaire-9 Score 0 01/19/2025 Patient Health Questionnaire-9 Score 0 01/19/2025 Last PHQ-9: Questionnaire Data Not on file 0 01/19/2025 Housing Stability Answer Date Recorded What is your housing situation today? I have yelena ansari 07/20/[address] you li ve. Do you have problems with any of the following? None of the above 07/20/2024 Food Insecurity Answer Date Recorded Within the past 12 months, y ou worried that your food would run out before you got money to buy more: Never True 07/20/2024 Within the past 12 months,th e food you bought just didn't last and you didn't have enough money to get more: Never True Transportation Answer Date Recorded In the past 12 months, has l ack of transportation kept you from medical appts, meetings, work or from getting things needed for daily living? No 07/20/2024 Utilities Answer Date Recorded In the past 12 months, has t he electric, gas, oil or water company threatened to shut off services in your home? No 07/20/2024 Depression Answer Date Recorded Patient Health Questionnaire-2 Score 0 01/19/2025 Internet Access Answer Date Recorded Internet Access Q1 Yes 07/20/2024 Internet Access Q2 Not on file 07/20/2024 Comments Unknown Sex and Gender Information Value Date Recorded Sex Assigned at Female 08/04/2022 10:20 AM EDT Legal Sex Female 10:20 AM EDT Gender Identity Female 08/04/2022 10:20 AM EDT Sexual Orientation Straight 08/04/2022 10 :20 AM EDT documented as of this encounter Plan of Treatment Upcoming Encounters Date Type Department Care Team (Late st Contact Info) Description 01/24/2025 11:30 AM EDT Office Visit [facility] [address] [place] [address] Khushboo Diaz MD [address] [place] [address] 07/19/2025 1:00 PM EDT Office Visit [facility] ADULT DENTAL [address] [place] [address] [employer] [address] [place] [address] documented as of this encounter Procedures Procedure Name Priority Date/Time Associated Diagnosis Comments CANCELLED COAG Routine 01/19/2025 1:36 PM EDT SLIDE REVIEW Routine 01/19/2025 11:31 AM EDT documented in this encounter Results * Cancelled Coag (01/19/2025 1:36 PM EDT) Cancelled Coag SEE NOTE [facility] 01/19/2025 1:36 PM EDT 01/19/2025 1:36 PM EDT Shayy Davis ANP HISTORICAL/NON ORDERABLE LABS Fi nal Result Performing Organization Address [facility] [facility] Co de Phone Number [facility] [address] [place] [address] [phone] * Slide Review (01/19/2025 11:31 AM EDT) Slide Review VERIFIED [facility] 01/19/2025 11:3 1 AM EDT 01/19/2025 1:15 PM EDT Shayy Davis ANP LAB BLOOD ORDERABLES Final Resul t Performing Organization Address [facility] Co de Phone Number [facility] [address] [place] [address] [phone] documented in this encounter Visit Diagnoses Not on filedocumented in this encounter Additional Health Concerns Assessment Noted Time PHQ-9 Depression Total Score: 0 01/20/20 25 10:36 AM EDT documented as of this encounter Care Teams Woodworking Shop Laborer Relationship Specialty Start Date End Date Khushboo Diaz MD [address] [place] [address] PCP - General Family Medicine 06/04/21 documented as of this encounter
--- OUTSIDE RECORDS SUMMARY | 2025-01-19 14:18 | XMS_ITS | Encounter Summary ---
Author Organization [employer] [facility] Address [address] [place] [address] [address] [place] [address] Care Team Providers Care Cathode Ray Tube Assembler Name Role Phone Khushboo Diaz MD Primary Care Provider [phone] Encounter Details Date Type Department Care Team (Latest Contact Info) Description 05/26/2022 Abstract [facility] CONVERSIONS Dental, Provider, DDS Social History Tobacco Use Types Packs/Day Years Used Date Smoking Tobacco: Never Assessed Comments Unknown Sex and Gender Information Value Date Recorded Sex Assigned at Female 08/04/2022 10:20 AM EDT Legal Sex Female 10:20 AM EDT Gender Identity Female 08/04/2022 10:20 AM EDT Sexual Orientation Straight 08/04/2022 10 :20 AM EDT documented as of this encounter Plan of Treatment Upcoming Encounters Date Type Department Care Team ( st Contact Info) Description 01/24/2025 11:30 AM EDT Office Visit [facility] MED[facility] [address] [place] [address] Khushboo Daiz MD [address] [place] [address] 07/19/2025 1:00 PM EDT Office Visit [facility] ADULT DENTAL [address] [place] [address] [employer] [address] [place] [address] documented as of this encounter Visit Diagnoses Not on filedocumented in this encounter Care Teams Cathode Ray Tube Assembler Relationship Specialty Start Date End Date Khushboo Diaz MD [address] [place] [address] PCP - General Family Medicine 06/04/21 documented as of this encounter
--- OUTSIDE RECORDS SUMMARY | 2025-01-19 14:18 | XMS_ITS | Encounter Summary ---
Demographics Address [address] [place] [address] Work Phone Mobile Phone Home Phone Email Address Preferred Language es Marital Status Single Muslim Affiliation Unknown Race White Ethnic Group or Author Organization [employer] Address [address] [place] [address] Care Team Providers Care Software Configuration Analyst Name Role Phone Khushboo Diaz MD Primary Care Provider [phone] Reason for Visit * Reason Onset Date Comments chart prep 01/17/2025 Encounter Details Date Type Department Care Team ([facility] Contact Info) Description 01/17/2025 Telephone [facility] [address] [place] [address] Shantanu Stanleycy [place] chart prep Social History Tobacco Use Types Packs/Day Years Used Date Smoking Tobacco: Never Smokeless Tobacco: Never Alcohol Use Standard Drinks/Week Comments Yes 0 (1 standard drink = 0.6 oz pur e alcohol) oca Housing Stability Answer Date Recorded What is [...] Date Recorded Patient Health Questionnaire-2 Score 0 04/20/2023 Internet Access Answer Date Recorded Internet Access Q1 Yes 07/20/2024 Internet Access Q2 Not on file 07/20/2024 Comments Unknown Sex and Gender Information Value Date Recorded Sex Assigned at Female 08/04/2022 10:20 AM EDT Legal Sex Female 10:20 AM EDT Gender Identity Female 08/04/2022 10:20 AM EDT Sexual Orientation Straight 08/04/2022 10 :20 AM EDT documented as of this encounter Miscellaneous Notes * Telephone Encounter - Leticia Stanley [place] - 01/17/2025 9:09 AM EDT Chart Prep Labs: done Images: ordered 07/27/25 Referrals: chiri 07/27/25 Vaccines due: yes Screenings: not applicable Overdue care gaps: SBIRT and PHQ-9 documented in this encounter Plan of Treatment Upcoming Encounters Date Type Department Care Team (Late st Contact Info) Description 01/24/2025 11:30 AM EDT Office Visit [facility] [address] [place] [address] Khushboo Diaz MD [address] [place] [address] 07/19/2025 1:00 PM EDT Office Visit [facility] ADULT DENT[facility] [address] [place] [address] Mekhi, Sammi [address] [place] [address] documented as of this encounter Visit Diagnoses Not on filedocumented in this encounter Care Teams Software Configuration Analyst Relationship Specialty Start Date End Date Khushboo Diaz MD [address] [place] [address] PCP - General Family Medicine 06/04/21 documented as of this encounter
--- OUTSIDE RECORDS SUMMARY | 2025-01-19 14:18 | XMS_ITS | Encounter Summary ---
Demographics Address [address] [place] [address] Work Phone Mobile Phone Home Phone Email Address Preferred Language es Marital Status Single Oriental Orthodox Affiliation Unknown Race White Ethnic Group or Author Organization [employer] Address [address] [place] [address] Care Team Providers Care Customer Retention Specialist Name Role Phone Khushboo Diaz MD Primary Care Provider [phone] Encounter Details Date Type Department Care Team ([facility] st Contact Info) Description 01/19/2025 10:30 AM EDT Office Visit [facility] [address], [place] [id number] Shayy Davis, ANP [address] [place], [place] [phone] Pre-op examination (Primary Dx); Need for hepatitis B screening test Social History Tobacco Use Types Packs/Day Years Used Date Smoking Tobacco: Never Passive Smoke Exposure: Never Smokeless Tobacco: Never Tobacco Cessation:Counseling Given: Not Answered Alcohol Use Standard Drinks/Week Comments Yes 0 [...] AM EDT documented as of this encounter Last Filed Vital Signs Vital Sign Reading Time Taken Comments Blood Pressure 120/73 01/19/2025 10:33 AM EDT Pulse 77 01/19/2025 10:33 AM EDT Temperature 36.7 ??C (98.1 ??F) 01/19/2025 10:33 AM E DT Respiratory Rate 22 01/19/2025 10:33 AM EDT Oxygen Saturation 99% 01/19/2025 10:33 AM EDT Inhaled Oxygen Concentration - - Weight 77.2 kg (170 lb 2 oz) 01/19/2025 10:33 AM EDT Height 157.5 cm (5' 2 ) 01/19/2025 10:33 AM EDT Body Mass Index 31.12 01/19/2025 10:33 AM EDT documented in this encounter Progress Notes * JUSTINE Adames - 01/19/2025 10:30 AM EDT Subjective Patient ID: Arnulfo Patel is a 34 y.o. female who presents for No chief complaint on file.. HPI Here today for pre-operative clearance. Location: advanced plastic surgery [facility] located at [place] [address]. Phone number is [phone] Fax number is [phone]. Dr Nitin Crowell. Procedure: Liposuction of arms and abdomen with fat transfer to buttocks Date of procedure: 02/14/25 type of anesthesia: General Cardiac Risk History of ischemic heart disease: N History of heart failure: N History of cerebrovascular disease: N Diabetes mellitus requiring treatment with insulin: N If h/o DM, last A1c: NA Preoperative serum creatinine >2.0 mg/dL : N Activity tolerance >4 METS: Y Bleeding Risk: Chronic anticoagulation: N Blood clotting disorder: N Pulmonary History: None Personal or family history of anesthesia reaction: No Smoking History: non-smoker ETOH: rare Substance Use: none LMP: 2 weeks ago BCM: BTL Chronic Medical Conditions: Patient Active Problem List Diagnosis Anxiety disorder, unspecified Seasonal allergies Vitamin D deficiency Routine screening for STI (sexually transmitted infection) Class 2 obesity without serious comorbidity with body mass index (BMI) of 35.0 to 35.9 in adult Bilateral carpal tunnel syndrome Globus sensation Cubital tunnel syndrome on left Low back pain at multiple sites Review of Systems Constitutional: Negative for chills and fever. HENT: Negative for sore throat. Respiratory: Negative for cough and shortness of breath. Cardiovascular: Negative for chest pain. Gastrointestinal: Negative for constipation and diarrhea. Endocrine: Negative for polydipsia, polyphagia and polyuria. Genitourinary: Negative for dysuria. Objective BP 120/73 (BP Location: Right arm, Patient Position: Sitting, BP Cuff Size: Adult) Pulse 77 Temp 98.1 ??F (36.7 ??C) (Temporal) Resp 22 Ht 5' 2 (1.575 m) Wt 170 lb 2 oz (77.2 kg) SpO2 99% BMI 31.12 kg/m?? Physical Exam Constitutional: General: She is not in acute distress. Appearance: Normal appearance. She is not ill-appearing. HENT: Head: Normocephalic and atraumatic. Eyes: General: No scleral icterus. Extraocular Movements: Extraocular movements intact. Pupils: Pupils are equal, round, and reactive to light. Neck: Vascular: No carotid bruit. Cardiovascular: Rate and Rhythm: Normal rate and regular rhythm. Heart sounds: No murmur heard. Pulmonary: Effort: Pulmonary effort is normal. No accessory muscle usage or respiratory distress. Breath sounds: Normal breath sounds. No wheezing. Musculoskeletal: Right lower leg: No edema. Left lower leg: No edema. Lymphadenopathy: Cervical: No cervical adenopathy. Neurological: Mental Status: She is alert and oriented to person, place, and time. Cranial Nerves: No cranial nerve deficit. Gait: Gait normal. Psychiatric: Mood and Affect: Mood normal. Behavior: Behavior normal. Encounter Date: 01/19/25 ECG 12 lead Narrative HR 71, QRS 90ms, QT/QTc 394/413, sinus, normal axis, no ischemic changes Assessment/Plan Diagnoses and all orders for this visit: Pre-op examination Regarding preoperative clearance, pt is at acceptable risk for proposed surgery/procedure. Reviewedthat no surgery is without risk and this evaluation is to assist surgeon in accurately reviewing informed consent and assessing pt appropriateness as surgical candidate. RCRI score: 0 Reviewed w/ pt need for follow-up plan in place were complications to occur. Pt reports no CP at rest or w/ exertion, no ROSS, no LE edema. Reports being able to achieve >4 METs. No personal h/o coagulopathy, DM, renal or CVD. The risks of surgery were discussed with the pt. May proceed pending normal lab results. - CBC auto differential; Future - Comprehensive Metabolic Panel; Future - Prothrombin Time-INR; Future - Partial Thromboplastin Time, Activated (APTT); Future - TSH W/Reflex to FT4; Future - HIV-1/2 Antigen and Antibodies, Fourth Generation, with Reflexes; Future - ECG 12 lead Need for hepatitis B screening test - Hepatitis B Core Antibody, Total; Future - Hepatitis B surface antigen, EIA; Future - Hepatitis B Surface Antibody, Qualitative; Future documented in this encounter Plan of Treatment Upcoming Encounters Date Type Department Care Team (Late st Contact Info) Description 01/24/2025 11:30 AM EDT Office Visit [facility] [address] [place] [address] Khushboo Diaz MD [address] [place] [address] 07/19/2025 1:00 PM EDT Office Visit [facility] [address] [place] [address] [employer] [address] [place] [address] Scheduled Orders Name Type Priority Associated Diagnoses Orde r Schedule Prothrombin Time-INR Lab Routine Pre-op examination Expected: 01/19/2025, Expires: 01/19/2026 Partial Thromboplastin Time, Activated (APTT) Lab Routine Pre-op examination Expected: 01/19/2025, Expires: 01/19/2026 HIV-1/2 Antigen and Antibodies, Fourth Generation, with Reflexes Lab Routine Pre-op examination Expected: 01/19/2025 (Approximate), Expires: 01/19/2026 Hepatitis B Core Antibody, Total Lab Routine Need for hepatitis B screening test Expected: 01/19/2025 (Approximate), Expires: 01/19/2026 Hepatitis B surface antigen, EIA Lab Routine Need for hepatitis B screening test Expected: 01/19/2025 (Approximate), Expires: 01/19/2026 Hepatitis B Surface Antibody, Qualitative Lab Routine Need for hepatitis B screening test Expected: 01/19/2025 (Approximate), Expires: 01/19/2026 documented as of this encounter Procedures Procedure Name Priority Date/Time Associated Diagnosis Comments ECG 12-LEAD Routine 01/19/2025 12:31 PM EDT Pre-op examination TSH W/REFLEX TO FT4 Routine 01/19/2025 1 1:31 AM EDT Pre-op examination CBC WITH AUTO DIFFERENTIAL Routine 01/19/2025 11:31 AM EDT Pre-op examination COMPREHENSIVE METABOLIC PANEL Routine 01/19/2025 11:31 AM EDT Pre-op examination documented in this encounter Results * ECG 12 lead (01/19/2025 12:31 PM EDT) Narrative Shyay Davis ANP - 01/19/2025 12:31 PM EDT HR 71, QRS 90ms, QT/QTc 394/413, sinus, normal axis, no ischemic changes Shayy FLETCHER ECG ORDERABLES Final Result * TSH W/Reflex to FT4 (01/19/2025 11:31 AM EDT) TSH reflex Free T4 1.03 0.32 - 4.0 uIU/mL [facility] Blood Venous blood specimen / Unknown 01/19/2025 11:31 AM EDT 01/19/2025 1:15 PM EDT Shayy Davis [facility] BLOOD ORDERABLES Final Resul t [facility] [address] [place] [address] [phone] * Comprehensive Metabolic Panel (01/19/2025 11:31 AM EDT) Sodium 138 135 - 145 mmol/L [facility] Potassium 4.1 3.3 - 5.1 mmol/L [facility] Comment:Slight Hemolysis.Int erpret result with caution. Chloride 106 96 - 108 mmol/L [facility] Carbon Dioxide 24 22 - 29 mmol/L [facility] Anion Gap 12 12 - 20 [facility] Urea Nitrogen (BUN) 9 9 - 16 mg/dL [facility] Creatinine, Serum 0.62 0.5 - 1.4 mg/dL [facility] Estimated Glomerular Filt Rate >60 [facility] Comment:Chronic Kidney Disea se: Estimated GFR < 60 mL/min/[id number] Kidney Disease: Estimated GFR < 15 mL/min/1.73m2 Glucose 90 60 - 115 mg/dL [facility] Calcium 9.1 8.4 - 10.2 mg/dL [facility] Bilirubin, Total 0.2 0.0 - 1.0 mg/dL [facility] Aspartate Amino Transferase 24 5 - 31 U/L [facility] Comment:Slight Hemolysis.Int erpret result with caution. Alanine Aminotransferase 13 0 - 31 U/L [facility] Total Protein 8.0 6.5 - 8.0 g/dL [facility] Albumin Level 4.2 3.5 - 5.0 g/dL [facility] Alkaline Phosphatase 53 39 - 117 U/L [facility] Blood Venous blood specimen / Unknown 01/19/2025 11:31 AM EDT 01/19/2025 1:15 PM EDT Shayy Davis [facility] BLOOD ORDERABLES Final Resul t [facility] [address] [place] [address] [phone] * CBC auto differential (01/19/2025 11:31 AM EDT) White Blood Count 6.2 4.8 - 10.8 X10*3/uL [facility] Red Blood Count 4.55 4.20 - 5.50 X10*6/uL [facility] Hemoglobin 13.5 12.0 - 16.0 g/dl [facility] Hematocrit 40.9 37.0 - 47.0 % [facility] Mean Corpuscular Volume 89.9 80.0 - 98.0 fL [facility] Mean Corpuscular Hemoglobin 29.7 27.0 - 33.0 pg [facility] Mean Corpuscular HGB Conc 33.0 31.0 - 35.0 g/dl [facility] Red Cell Distribution Width 13.1 11.0 - 16.0 % [facility] Platelet Count 284 160 - 400 X10*3/uL [facility] Mean Platelet Volume 11.1 9.4 - 12.3 fL [facility] Neutrophils Percent Auto 53.4 45 - 73 % [facility] Imm Gran Pct Auto 0.3 0.0 - 0.4 % [facility] Lymphocytes Percent Auto 34.6 20 - 40 % [facility] Monocytes Percent Auto 7.8 2 - 11 % [facility] Eosinophils Percent Auto 3.6 0 - 4 % [facility] Basophils Percent Auto 0.3 0 - 2 % [facility] NRBC Pct Auto 0.0 0.0 - 0.2 /100WBC [facility] Neutrophils Absolute Auto 3.3 2.0 - 8.3 x10*3/uL [facility] Imm Gran Abs Auto 0.02 0.00 - 0.03 X10*3/uL [facility] Lymphocytes Absolute Auto 2.1 1.2 - 4.9 X10*3/uL [facility] Monocytes Absolute Auto 0.5 0.1 - 1.2 X10*3/uL [facility] Eosinophils Absolute Auto 0.2 0.0 - 0.4 X10*3/uL [facility] Basophils Absolute Auto 0.0 0.0 - 0.2 X10*3/uL [facility] NRBC Abs Auto 0.000 0.0 - 0.012 X10*3/uL [facility] Blood Venous blood specimen / Unknown 01/19/2025 11:31 AM EDT 01/19/2025 1:15 PM EDT Shayy FLETCHER LAB BLOOD ORDERABLES Edited Resu lt - Final [facility] [address] [place] [address] [phone] documented in this encounter Visit Diagnoses Diagnosis Pre-op examination- Primary Need for hepatitis B screening test documented in this encounter Additional Health Concerns Assessment Noted Time PHQ-9 Depression Total Score: 0 01/20/20 25 10:36 AM EDT documented as of this encounter Care Teams Customer Retention Specialist Relationship Specialty Start Date End Date Khushboo Diaz MD [address] [place] [address] PCP - General Family Medicine 06/04/21 documented as of this encounter
--- OUTSIDE RECORDS SUMMARY | 2025-01-19 14:18 | XMS_ITS | Clinical Summary ---
Author Organization [employer] Address [address] [facility] [facility] [address] [place] [address] Care Team Providers Care Air Export Agent Name Role Phone Khushboo Diaz MD Primary Care Provider [phone] Allergies No known active allergies Medications * This document contains information received from the source organization and may not represent a complete record from that organization. No known medications Active Problems Problem Noted Date Diagnosed Date Low back pain at multiple sites 07/27/2024 Assessment & Plan (07/27/2024 2:40 PM EDT): No red flags on history or exam Globus sensation 09/01/2023 Assessment & Plan (09/01/2023 9:41 AM EST): With diffuse fullness of thyroid on exam Will obtain TSH and refer for thyroid ultrasound Cubital tunnel syndrome on left 09/01/2023 Routine screening for STI (sexually transmitted infection) 04/22/2023 Class 2 obesity without seri ous comorbidity with body mass index (BMI) of 35.0 to 35.9 in adult 04/22/2023 Assessment & Plan (07/27/2024 2:39 PM EDT): Has met with entrepreneurship program director and with [facility] weight loss program Trying to lose more weight on her own with diet modifications alone Walk daily, diet low in saturated fat, processed foods Assessment & Plan (02/02/2024 3:07 PM EDT): Has met with entrepreneurship program director and with [facility] weight loss program Trying to lose more weight on her own with diet modifications alone Will consider Columbian liposuction, I urged her to research clinics more and also to obtain pre-op clearance forms if she is going to go forward with this surgical option Bilateral carpal tunnel syndrome 04/22/2023 Assessment & Plan (04/22/2023 8:44 AM EDT): Continue PT Stretching exercises at home Prn Ibuprofen Night splints ordered Anxiety disorder, unspecified 02/12/2023 Vitamin D deficiency 08/13/2018 Seasonal allergies 07/02/2018 Encounters Date Type Department Care Team Description 01/19/2025 10:30 AM EDT Office Visit [facility] MEDICINE [address] [place] [phone] Shayy Davis ANP Pre-op examination (Primary Dx); Need for hepatitis B screening test 01/19/2025 Orders Only [facility] MEDICINE [address] [place] [address] Shayy Davis ANP 01/19/2025 Travel 01/17/2025 Telephone [facility] WALK-IN CENTER [address] [place] [address] Leticia Stanley MA chart prep 12/16/2024 Population Health Risk Score [facility] ([facility] Department [address] [phone] Provider, Population Health Generic 12/12/2024 Telephone [facility] MEDICINE [address] [place] [address] Khushboo Diaz MD Pre-op 12/08/2024 Telephone [facility] PEDIATRICS [address] [place] [address] Khushboo Diaz MD triage : Appt request from Last 3 Months Immunizations Name Administration Dates Next Due Tdap 05/15/2022 Family History Medical History Relation Name Comments No Known Problems Father Asthma Mother Hypertension Mother Relation Name Status Comments Father Mother Social History Tobacco Use Types Packs/Day Years [...] Orientation Straight 08/04/2022 10 :20 AM EDT Last Filed Vital Signs Vital Sign Reading [...] Mass Index 31.12 01/19/2025 10:33 AM EDT Plan of Treatment Upcoming Encounters Date Type Department Care Team (Late st Contact Info) Description 01/24/2025 11:30 AM EDT Office Visit [facility] MEDICINE [address] [place] [address] Khushboo Diaz MD [address] [place] [address] 07/19/2025 1:00 PM EDT Office Visit [facility] ADULT DENTAL [address] [place] [address] Mekhi, Sammi [address] [place] [address] Health Maintenance Due Date Last Done Comments Family Planning (PISQ) 2005 Hepatitis B Vaccines (1 of 3 - 19+ 3-dose series) 2009 Dental Oral Exam 11/27/2022 05/26/2022 Dental Prophylaxis 11/27/2022 05/26/2022 Dental X-Ray: Bitewings 05/27/2023 05/26/2022 Pap Smear 11/11/2024 11/11/2021 Influenza Vaccine (#1) 2025 Postp oned from 06/05/2024 (Patient Refused) SDOH Screening 07/20/2025 07/20/2024 Dental X-Ray: Full Mouth 09/16/2025 09/15/2022 Alcohol/Substance Use Screening 01/19/2026 01/19/2025 COVID-19 Vaccine (2023-2 5 season) 2026 05/15/2022, 03/07/2021, 02/06/2021 Postponed from 06/05/2024 (Patient Refused) Depression Screening 01/19/2026 01/19/2025, 01/19/2025 Tobacco Screening 01/19/2026 01/19/2025 Lipid Panel 02/04/2026 02/04/2021 Cervical Cancer Screening 11/11/2026 HPV/Cotest 11/11/2026 11/11/2021 DTaP/Tdap/Td Vaccines (2 - T d or Tdap) 05/15/2032 05/15/2022 Zoster Vaccines (1 of 2) 2040 RSV Patients and Patients Aged 60 years or older (1 - 1-dose 75+ series) 2065 HIV Screening Completed 07/27/2024, 04/20/2023, 02/04/2021 Hepatitis C Screening Completed 07/27/2024 , 04/20/2023, 02/04/2021 HIB Vaccines Aged Out No longer eligi ble based on patient's age to complete this topic HPV Vaccines Aged Out No longer eligi ble based on patient's age to complete this topic Hepatitis A Vaccines Aged Out No long er eligible based on patient's age to complete this topic IPV Vaccines Aged Out No longer eligi ble based on patient's age to complete this topic Meningococcal Vaccine Aged Out No erick will eligible based on patient's age to complete this topic Pneumococcal Vaccine: Pediatrics (0 to 5 Years) and At-Risk Patients (6 to 49) Years) Aged Out No longer eligible b ased on patient's age to complete this topic RSV under 20 months Aged Out No longe r eligible based on patient's age to complete this topic Rotavirus Vaccines Aged Out No longer eligible based on patient's age to complete this topic Procedures Procedure Name Priority Date/Time Associated Diagnosis Comments CANCELLED COAG Routine 01/19/2025 1:36 PM EDT ECG 12-LEAD Routine 01/19/2025 12:31 PM EDT Pre-op examination SLIDE REVIEW Routine 01/19/2025 11:31 AM EDT TSH W/REFLEX TO FT4 Routine 01/19/2025 1 1:31 AM EDT Pre-op examination COMPREHENSIVE METABOLIC PANEL Routine 01/19/2025 11:31 AM EDT Pre-op examination CBC WITH AUTO DIFFERENTIAL Routine 01/19/2025 11:31 AM EDT Pre-op examination HEPATITIS C AB W/REFL TO HCV RNA, QN, PCR Routine 07/27/2024 2:55 PM EDT Encounter for screening examination for sexually transmitted infection HIV 1/2 ANTIGEN/ANTIBODY, FOURTH GENERATION W/RFL Routine 07/27/2024 2:55 PM EDT Encounter for screening examination for sexually transmitted infection PANORAMIC RADIOGRAPHIC IMAGE Routine 09/15/2022 4:00 PM EST Periapical abscess without sinus HPV MRNA E6/E7 REFLEX TO HPV 16, 18/45 Routine 11/11/2021 12:00 AM EST THINPREP IMAGING SYSTEM PAP Routine 11/11/2021 12:00 AM EST LIPID PANEL, STANDARD Routine 02/04/2021 11:59 AM EDT from Last 3 Months or Most Recently Relevant to Health Maintenance Results * Cancelled Coag (01/19/2025 1:36 PM EDT) Cancelled Coag SEE NOTE [facility] 01/19/2025 1:36 PM EDT 01/19/2025 1:36 PM EDT us Shayy FLETCHER HISTORICAL/NON ORDERABLE LABS Fi nal Result Performing Organization Address [facility] Co de Phone Number [facility] [address] [place], [place] [phone] * ECG 12 lead (01/19/2025 12:31 PM EDT) Narrative Shayy Davis ANP - 01/19/2025 12:31 PM EDT HR 71, QRS 90ms, QT/QTc 394/413, sinus, normal axis, no ischemic changes us Shayy Davis ANP ECG ORDERABLES Final Result * Slide Review (01/19/2025 11:31 AM EDT) Slide Review VERIFIED [facility] 01/19/2025 11:3 1 AM EDT 01/19/2025 1:15 PM EDT us Shayy FLETCHER LAB BLOOD ORDERABLES Final Resul t Performing Organization Address City/[facility]/ZIP Co de Phone Number [facility] [address] [place] [address] [phone] * TSH W/Reflex to FT4 (01/19/2025 11:31 AM EDT) Pathologist [facility] TSH reflex Free T4 1.03 0.32 - 4.0 uIU/mL [facility] Blood Venous blood specimen / Unknown 01/19/2025 11:31 AM EDT 01/19/2025 1:15 PM EDT [facility] LAB BLOOD ORDERABLES Final Resul t Performing Organization Address [facility] Co de Phone Number [facility] [address] [place] [phone] * CBC auto differential (01/19/2025 11:31 AM EDT) Pathologist [facility] White Blood Count 6.2 4.8 - 10.8 X10*3/uL [facility] Red Blood Count 4.55 4.20 - 5.50 X10*6/uL [facility] Hemoglobin 13.5 12.0 - 16.0 g/dl [facility] Hematocrit 40.9 37.0 - 47.0 % [facility] Mean Corpuscular Volume 89.9 80.0 - 98.0 fL [facility] Mean Corpuscular Hemoglobin 29.7 27.0 - 33.0 pg [facility] Mean Corpuscular HGB Conc 33.0 31.0 - 35.0 g/dl [facility] Red Cell Distribution Width 13.1 11.0 - 16.0 % [facility] Platelet Count 284 160 - 400 X10*3/uL [facility] Mean Platelet Volume 11.1 9.4 - 12.3 fL [facility] Neutrophils Percent Auto 53.4 45 - 73 % [facility] Imm Gran Pct Auto 0.3 0.0 - 0.4 % [facility] Lymphocytes Percent Auto 34.6 20 - 40 % [facility] Monocytes Percent Auto 7.8 2 - 11 % [facility] Eosinophils Percent Auto 3.6 0 - 4 % [facility] Basophils Percent Auto 0.3 0 - 2 % [facility] NRBC Pct Auto 0.0 0.0 - 0.2 /100WBC [facility] Neutrophils Absolute Auto 3.3 2.0 - 8.3 x10*3/uL [facility] Imm Gran Abs Auto 0.02 0.00 - 0.03 X10*3/uL [facility] Lymphocytes Absolute Auto 2.1 1.2 - 4.9 X10*3/uL [facility] Monocytes Absolute Auto 0.5 0.1 - 1.2 X10*3/uL [facility] Eosinophils Absolute Auto 0.2 0.0 - 0.4 X10*3/uL [facility] Basophils Absolute Auto 0.0 0.0 - 0.2 X10*3/uL [facility] NRBC Abs Auto 0.000 0.0 - 0.012 X10*3/uL [facility] Blood Venous blood specimen / Unknown 01/19/2025 11:31 AM EDT 01/19/2025 1:15 PM EDT Shayy Davis ANP LAB BLOOD ORDERABLES Edited Resu lt - Final [facility] [address] [place], [place] [phone] * Comprehensive Metabolic Panel (01/19/2025 11:31 AM EDT) Sodium 138 135 - 145 mmol/L [facility] Potassium 4.1 3.3 - 5.1 mmol/L [facility] Comment:Slight Hemolysis.Int erpret result with caution. Chloride 106 96 - 108 mmol/L [facility] Carbon Dioxide 24 22 - 29 mmol/L [facility] Anion Gap 12 12 - 20 [facility] Urea Nitrogen (BUN) 9 9 - 16 mg/dL [facility] Creatinine, Serum 0.62 0.5 - 1.4 mg/dL [facility] Estimated Glomerular Filt Rate >60 [facility] Comment:Chronic Kidney Disea se: Estimated GFR < 60 mL/min/[id number] Kidney Disease: Estimated GFR < 15 mL/min/1.73m2 Glucose 90 60 - 115 mg/dL [facility] Calcium 9.1 8.4 - 10.2 mg/dL [facility] Bilirubin, Total 0.2 0.0 - 1.0 mg/dL [facility] Aspartate Amino Transferase 24 5 - 31 U/L [facility] Comment:Slight Hemolysis.Int erpret result with caution. Alanine Aminotransferase 13 0 - 31 U/L [facility] Total Protein 8.0 6.5 - 8.0 g/dL [facility] Albumin Level 4.2 3.5 - 5.0 g/dL [facility] Alkaline Phosphatase 53 39 - 117 U/L [facility] Blood Venous blood specimen / Unknown 01/19/2025 11:31 AM EDT 01/19/2025 1:15 PM EDT us Shayy FLETCHER LAB BLOOD ORDERABLES Final Resul t Performing Organization Address [facility] Co de Phone Number [facility] [address] [place] [phone] * Hepatitis C Antibody with Reflex to HCV, RNA, Quantitative, Real-Time PCR (07/27/2024 2:55 PM EDT) Hepatitis C Antibody Nonreactive Nonreactive [facility] Comment:Antibodies to HCV no t detected; does not exclude early acuteHCV infection. Blood Venous blood specimen / Unknown 07/27/2024 2:55 PM EDT 07/27/2024 4:09 PM EDT Khushboo Diaz MD LAB BLOOD ORDERABLES Final Res ult Performing Organization Address [facility]/ZIP Co de Phone Number [facility] [address] [place] [phone] * HIV-1/2 Antigen and Antibodies, Fourth Generation, with Reflexes (07/27/2024 2:55 PM EDT) HIV AB/AG Nonreactive Nonreactive [facility] Comment:HIV-1 p24 Ag and/or HIV-1/HIV-2 Ab not detected.A test result that is nonreactive does not exclude thepossibility of exposure to or infection with HIV-1 and/orHIV-2. Nonreactive results in this assay for individualswith prior exposure to HIV-1 and/or HIV-2 may be due toantigen and antibody levels that are below the limit ofdetection of this assay.The Recommendo HIV Ag/Ab Combo assay result andsupplemental assay results should be interpreted inconjunction with the patient's clinical presentation,history and other laboratory results. If the results areinconsistent with clinical evidence, additional testing issuggested to confirm the result. Blood Venous blood specimen / Unknown 07/27/2024 2:55 PM EDT 07/27/2024 4:09 PM EDT us Khushboo Diaz MD LAB BLOOD ORDERABLES Final Res ult [facility] [address] [place] [phone] * THINPREP TIS PAP (11/11/2021 12:00 AM EST) Pathologist [facility] Clinical Information: None given [facility] COMMENT SEE COMMENT [facility] Comment: EXPLANATORY NOTE: ? The Pap is a screening test for cervical cancer. It is ?? not a diagnostic test and is subject to false negative ?? and false positive results. It is most reliable when a ?? satisfactory sample, regularly obtained, is submitted ?? with relevant clinical findings and history, and when ?? the Pap result is evaluated along with historic and ?? current clinical information. ?? COMMENT: This Pap test has been evaluated with computer assisted technology. [facility] Lathe Turner : SEE COMMENT [facility] Comment: WAC, CT(ASCP) CT screening location: [facility] [address] ??[phone] Infection Shift in vaginal marc suggestive of bacterial vaginosis. [facility] Interpretation/R esult: Negative for intraepithelial lesion or malignancy. [facility] LMP: NONE GIVEN [facility] Prev. BX: NONE [facility]IV[facility] Prev. PAP: NONE GIVEN [facility] SOURCE: None given [facility] Statement Of Adequacy: SEE COMMENT [facility] Comment: Satisfactory for evaluation. Endocervical/transformation zone component absent. Age and/or menstrual status not provided 11/11/2021 Khushboo Diaz MD LAB PATHOLOGY ORDERABLES Final Result Performing Organization Address [facility] Phone Number [facility] [address] * HPV mRNA E6/E7 REFLEX TO HPV 16, 18/45 (11/11/2021 12:00 AM EST) Pathologist [facility] HPV nRNA E6/E7 Not Detected Not Detected [facility] Comment: Methodology: Saw Grinder-Mediated Amplification This assay detects E6/E7 viral messenger RNA (mRNA) from 14 high-risk HPV types (16,18,31,33,35,39,45,51,52,56,58,59,66,68). ? The analytical performance characteristics of this assay have been determined by [employer]. The modifications have not been cleared or approved by the FDA. This assay has been validated pursuant to the CLIA regulations and is used for clinical purposes. ?? For additional information, please refer to http://education.[employer].com/faq/PWT368s6 (This link if provided for information/ educational purposes only.) 11/11/2021 Khushboo Diaz MD LAB CYTOLOGY ORDERABLES Final Result Performing Organization Address [facility] Phone Number [facility] [address] * (ABNORMAL) LIPID PANEL, STANDARD (02/04/2021 11:59 AM EDT) Pathologist [facility] Chol/HDLC Ratio 3.1 <5.0 (calc) [facility] Cholesterol, Total 150 <200 mg/dL [facility] HDL Cholesterol 49(L) > OR = 50 mg/dL [facility] LDL Cholesterol 85 mg/dL (calc) [facility] Comment: Reference range: <100 ?? Desirable range <100 mg/dL for primary prevention; ?? <70 mg/dL for patients with CHD or diabetic patients ?? with > or = 2 CHD risk factors. ?? LDL-C is now calculated using the Jazmine ?? calculation, which is a validated novel method providing ?? better accuracy than the Friedewald equation in the ?? estimation of LDL-C. ?? Sohail GRIMM et al. MARIE. 2013;310(19): 9392-6051 ?? (http://education.[employer]/faq/EWU106) Non-HDL Cholesterol 101 <130 mg/dL (calc) [facility] Comment: For patients with diabetes plus 1 major ASCVD risk ?? factor, treating to a non-HDL-C goal of <100 mg/dL ?? (LDL-C of <70 mg/dL) is considered a therapeutic ?? option. Triglycerides 74 <150 mg/dL [facility] 02/04/2021 11:5 9 AM EDT us Ragini Perry MD LAB BLOOD ORDERABLES Final Re sult [facility] [address] from Last 3 Months or Most Recently Relevant to Health Maintenance Insurance * Guarantor: Arnulfo Staples Account Type Relation to Patient Date of Phone Billing Address Personal/Family Self 1990 [address] [place] [address] [employer] [facility] STAND ADULT Care Teams Air Export Agent Relationship Specialty Start Date End Date Khushboo Diaz MD [address] [place] [phone] PCP - General Family Medicine 06/04/21
--- OUTSIDE RECORDS SUMMARY | 2025-01-19 14:18 | XMS_ITS | Encounter Summary ---
Demographics Address [address] [place] [address] Work Phone Mobile Phone Home Phone Email Address Preferred Language es Marital Status Single Jewish Affiliation Unknown Race White Ethnic Group or Author Organization [employer] Address [address] [place] [address] Care Team Providers Care Vp Public Relations Name Role Phone Khushboo Diaz MD Primary Care Provider [phone] Encounter Details Date Type Department Care Team ([facility] st Contact Info) Description 09/09/[address] [facility] MEDICINE [address] [place], [place] [phone] Khushboo Diaz MD [address] [place], [place] [phone] Cubital tunnel syndrome on left (Primary Dx) Social History Tobacco Use Types Packs/Day Years Used Date Smoking Tobacco: Never Smokeless Tobacco: Never Alcohol Use Standard Drinks/Week Comments Yes 0 (1 standard drink = 0.6 oz pur e alcohol) oca Housing Stability Answer Date Recorded What is your housing situation today? I have yelenakatiana ansari 07/21/[address] you li ve. Do you have problems with any of the following? None of the above 07/21/2023 Food Insecurity Answer Date Recorded Within the past 12 months, y ou worried that your food would run out before you got money to buy more: Never True 07/21/2023 Within the past 12 months,th e food you bought just didn't last and you didn't have enough money to get more: Never True Transportation Answer Date Recorded In the past 12 months, has l ack of transportation kept you from medical appts, meetings, work or from getting things needed for daily living? Yes, it has kept me from medical appointments or getting medications. 07/12/2023 Utilities Answer Date Recorded In the past 12 months, has t he electric, gas, oil or water company threatened to shut off services in your home? No 07/21/2023 Depression Answer Date Recorded Patient Health Questionnaire-2 Score 0 04/20/2023 Comments Unknown Sex and Gender Information Value [...] Description 01/24/2025 11:30 AM EDT Office Visit [facility] MEDICINE [address] [place] [address] Khushboo Diaz MD [address] [place] [address] 07/19/2025 1:00 PM EDT Office Visit [facility] ADULT DENTAL [address] [place] [address] [employer] [address] [place] [address] documented as of this encounter Visit Diagnoses Diagnosis Cubital tunnel syndrome on left- Primary documented in this encounter Care Teams Vp Public Relations Relationship Specialty Start Date End Date Khushboo Diaz MD [address] [place] [phone] PCP - General Family Medicine 06/04/21 documented as of this encounter
--- OUTSIDE RECORDS SUMMARY | 2025-01-19 14:18 | XMS_ITS | Encounter Summary ---
Author Organization [employer] Address [address] [place] [address] Care Team Providers Care Charging Manipulator Name Role Phone Khushboo Diaz MD Primary Care Provider [phone] Reason for Visit * Reason Onset Date Comments Paperwork/Forms 09/04/2023 Encounter Details Date Type Department Care Team ([facility] Contact Info) Description 09/04/2023 Telephone [facility] MEDICINE [address] [place] [address] Khushboo Diaz MD [address] [place], [place] [phone] Paperwork/Forms Social History Tobacco Use Types Packs/Day Years Used Date Smoking Tobacco: Never Smokeless Tobacco: Never Alcohol Use Standard Drinks/Week Comments Yes 0 (1 standard drink = 0.6 oz pur e alcohol) oca Housing Stability Answer Date Recorded What is your housing situation today? I have yelena ansari 07/21/[address] you [...] encounter Miscellaneous Notes * Telephone Encounter - Guerline Cutler RN - 09/04/2023 12:05 PM EST Pt. Referred to PT on 09/01/23 for dx left cubital tunnel syndrome. Please place new referral for OT. Thank you! * Telephone Encounter - Kemar Bragg - 09/04/2023 11:54 AM EST Tc from [facility] calling to request the referral for physical therapy needs to be updated to occupational therapy. documented in this encounter Plan of Treatment Upcoming Encounters Date Type Department Care Team (Late st Contact Info) Description 01/24/2025 11:30 AM EDT Office Visit [facility] MEDICINE [address] [place] [address] Khushboo Diaz MD [address] [place] [address] 07/19/2025 1:00 PM EDT Office Visit [facility] ADULT DENTAL [address] [place] [address] Sammi [employer] [address] [place] [address] documented as of this encounter Visit Diagnoses Not on filedocumented in this encounter Care Teams Charging Manipulator Relationship Specialty Start Date End Date Khushboo Diaz MD [address] [place] [address] PCP - General Family Medicine 06/04/21 documented as of this encounter
--- OUTSIDE RECORDS SUMMARY | 2025-01-19 14:18 | XMS_ITS | Encounter Summary ---
Author Organization [employer] Address [address] [place] [address] Care Team Providers Care Crop And Soil Scientist Name Role Phone Khushboo Diaz MD Primary Care Provider [phone] Encounter Details Date Type Department Care Team (Latest Contact Info) Description 01/19/2025 Travel Social History Tobacco Use Types Packs/Day Years [...] Description 01/24/2025 11:30 AM EDT Office Visit [facility] MEDICINE [address] [place] [address] Khushboo Diaz MD [address] [place] [address] 07/19/2025 1:00 PM EDT Office Visit [facility] ADULT DENTAL [address] [place] [address] Mekhi, Sammi [address] [place] [address] documented as of this encounter Visit Diagnoses Not on filedocumented in this encounter Additional Health Concerns Assessment Noted Time PHQ-9 Depression Total Score: 0 01/20/20 25 10:36 AM EDT documented as of this encounter Care Teams Crop And Soil Scientist Relationship Specialty Start Date End Date Khushboo Diaz MD [address] [place] [address] PCP - General Family Medicine 06/04/21 documented as of this encounter
--- OUTSIDE RECORDS SUMMARY | 2025-01-19 14:18 | XMS_ITS | Encounter Summary ---
Demographics Address [address] [place] [address] Work Phone Mobile Phone Home Phone Email Address Preferred Language es Marital Status Single Sikhism Affiliation Unknown Race White Ethnic Group or Author Organization [employer] Address [address] [place] [address] 7t [place] [address] Care Team Providers Care Mixer Runner Name Role Phone Khushboo Diaz MD Primary Care Provider [phone] Encounter Details Date Type Department Care Team (Late st Contact Info) Description 09/09/2022 Abstract [facility] [address] [place], [place] [phone] Dental, Provider, DDS Social History Tobacco Use [...] Description 01/24/2025 11:30 AM EDT Office Visit [facility] MEDICINE [address] [place] [address] Khushboo Diaz MD [address] [place] [address] 07/19/2025 1:00 PM EDT Office Visit [facility] ADULT DENTAL [address] [place] [address] Sammi Gaming [address] [place] [address] documented as of this encounter Procedures Procedure Name Priority Date/Time Associated Diagnosis Comments 30 MODB COMPOSITE FILLING Routine 09/09/2022 12:00 AM EST 29 DO COMPOSITE FILLING Routine 09/09/2022 12:00 AM EST 28 O COMPOSITE FILLING Routine 09/09/2022 12:00 AM EST 21 O COMPOSITE FILLING Routine 09/09/2022 12:00 AM EST 20 O COMPOSITE FILLING Routine 09/09/2022 12:00 AM EST 18 SIDNEY COMPOSITE FILLING Routine 09/09/2022 12:00 AM EST 17 O COMPOSITE FILLING Routine 09/09/2022 12:00 AM EST 16 O COMPOSITE FILLING Routine 09/09/2022 12:00 AM EST 15 LO COMPOSITE FILLING Routine 09/09/2022 12:00 AM EST 5 DO COMPOSITE FILLING Routine 09/09/2022 12:00 AM EST 4 M COMPOSITE FILLING Routine 09/09/2022 12:00 AM EST 2 LO COMPOSITE FILLING Routine 09/09/2022 12:00 AM EST 1 O COMPOSITE FILLING Routine 09/09/2022 12:00 AM EST 9 ROOT CANAL Routine 09/09/2022 12:00 AM EST documented in this encounter Visit Diagnoses Not on filedocumented in this encounter Care Teams Mixer Runner Relationship Specialty Start Date End Date Khushboo Diaz MD [address] [place] [address] PCP - General Family Medicine 06/04/21 documented as of this encounter
--- OUTSIDE RECORDS SUMMARY | 2025-01-19 14:18 | XMS_ITS | Encounter Summary ---
Author Organization [facility] Address [address] [place] [address] [address] [place] [address] Care Team Providers Care Sausage Canner Name Role Phone Khushboo Diaz MD Primary Care Provider [phone] Encounter Details Date Type Department Care Team (Latest Contact Info) Description 10/23/[address] [facility] CONVERSIONS Dental, Provider, DDS Social History Tobacco [...] Description 01/24/2025 11:30 AM EDT Office Visit [facility] MEDICINE [address] [place] [address] Khushboo Diaz MD [address] [place] [address] 07/19/2025 1:00 PM EDT Office Visit [facility] ADULT DENTAL [address] [place] [address] Sammi Gaming [address] [place] [address] documented as of this encounter Visit Diagnoses Not on filedocumented in this encounter Care Teams Sausage Canner Relationship Specialty Start Date End Date Khushboo Diaz MD [address] [place] [address] PCP - General Family Medicine 06/04/21 documented as of this encounter
[2025-01-20 08:08] LABS: HBS Num1 1.59 mIU/mL (0-7.99); HBc Num1 0.09 S/CO (0.00-0.79); HBsAGNum1 0.36 S/CO (0.00-0.99); HIV AB/AG Nonreactive (Nonreactive); HIV Num 1 0.06 S/CO (0.00-0.99); Hepatitis B Core Antibody Nonreactive (Nonreactive); Hepatitis B Surface Antigen Negative (Negative); ~Hepatitis B Surface Antibody NONREACTIVE (Nonreactive)
== END 2025-01-19 11:28 | disposition home or self-care (01) ==
LOC: HO.HHCL 11:27
PROVIDERS: Visit Provider Nurse Practitioner Primary Care
DX: Z01.818 Encounter for other preprocedural examination (principal); Z11.59 Encounter for screening for other viral diseases
CPT/HCPCS: 36415; 80053; 84443; 85025; 86704; 86706; 87340; 87389

== ENCOUNTER 2025-02-06 11:53 | Outpatient (REF) | payer MEDICAID, SELFPAY ==
[2025-02-06 13:32] LABS: Prothrombin Time 11.3 SEC (10.9-12.4)
--- OUTSIDE RECORDS SUMMARY | 2025-02-06 13:34 | XMS_ITS | Encounter Summary ---
Author Organization [employer] Address [address] [place] [address] Care Team Providers Care Commutator Inspector Name Role Phone Khushboo Diaz MD Primary Care Provider [phone] Reason for Visit * Reason Onset Date Comments Results 02/06/2025 Encounter Details Date Type Department Care Team ([facility] Contact Info) Description 02/06/2025 Telephone [facility] MEDICINE [address] [place], [place] [phone] Khushboo Diaz MD [address] [place], [place] [phone] Results Social History Tobacco Use Types Packs/Day Years Used Date Smoking Tobacco: Never Passive Smoke Exposure: Never Smokeless Tobacco: Never Alcohol Use Standard Drinks/Week Comments Not Currently 0 (1 standard drink = 0.6 oz [...] encounter Miscellaneous Notes * Telephone Encounter - Kendy Fong RN - 02/06/2025 1:17 PM EDT Noted. We are waiting on PT/INR results from labs drawn today. Pending in [employer]. * Telephone Encounter - Rosalia Abdi - 02/06/2025 12:14 PM EDT Patient walked in requesting EKG and labs to be faxed from 01/19 to [phone] attn. Tanisha Garza documented in this encounter Plan of Treatment Upcoming Encounters Date Type Department Care Team (Late st Contact Info) Description 07/19/2025 1:00 PM EDT Office Visit [facility] ADULT DENTAL [address] [place] [address] Mekhi, Sammi [address] [place] [address] documented as of this encounter Visit Diagnoses Not on filedocumented in this encounter Additional Health Concerns Assessment Noted Time PHQ-9 Depression Total Score: 0 01/20/20 25 10:36 AM EDT documented as of this encounter Care Teams Commutator Inspector Relationship Specialty Start Date End Date Khushboo Diaz MD [address] [place] [address] PCP - General Family Medicine 06/04/21 documented as of this encounter
--- OUTSIDE RECORDS SUMMARY | 2025-02-06 13:34 | XMS_ITS | Encounter Summary ---
Author Organization [employer] Address [address] [place] [address] Care Team Providers Care Plastic Injection Mold Maker Name Role Phone Khushboo Diaz MD Primary Care Provider [phone] Encounter Details Date Type Department Care Team (Late st Contact Info) Description 09/09/2022 Abstract [facility] ADULT DENTAL [address] [place] [address] Dental, Provider, DDS Social History Tobacco Use [...] Encounters Date Type Department Care Team (Late Contact Info) Description 07/19/2025 1:00 PM EDT Office Visit [facility] ADULT DENTAL [address] [place] [address] Sammi Gaming [address] [place] [address] documented as of this encounter Procedures Procedure [...] on filedocumented in this encounter Care Teams Plastic Injection Mold Maker Relationship Specialty Start Date End Date Khushboo Diaz MD [address] [place] [address] PCP - General Family Medicine 06/04/21 documented as of this encounter
--- OUTSIDE RECORDS SUMMARY | 2025-02-06 13:34 | XMS_ITS | Encounter Summary ---
Demographics Address [address] [place] [address] Work Phone Home Phone Email Address Preferred Language es Marital Status Single Mandaeism Affiliation Unknown Race White Ethnic Group or Author Organization [employer] Address [address] [place] [address] Care Team Providers Care Head Men'S Golf Coach Name Role Phone Khushboo Diaz MD Primary Care Provider [phone] Encounter Details Date Type Department Care Team ([facility] st Contact Info) Description 09/09/2023 Orders Only [facility] MEDICINE [address] [place] [address] Khushboo Diaz MD [address] [place] [address] Cubital tunnel syndrome on left (Primary Dx) [...] Description 07/19/2025 1:00 PM EDT Office Visit [facility] ADULT DENTAL [address] [place] [address] Sammi Gaming [address] [place] [address] documented as of this encounter Visit Diagnoses Diagnosis Cubital tunnel syndrome on left- Primary documented in this encounter Care Teams Head Men'S Golf Coach Relationship Specialty Start Date End Date Khushboo Diaz MD [address] [place] [address] PCP - General Family Medicine 06/04/21 documented as of this encounter
--- OUTSIDE RECORDS SUMMARY | 2025-02-06 13:34 | XMS_ITS | Encounter Summary ---
Author Organization [employer] Address [address] [place] [address] Care Team Providers Care X Ray Physician Name Role Phone Khushboo Diaz MD Primary Care Provider [phone] Reason for Visit * Reason Onset Date Comments FMLA 01/25/2025 I called the pat ient, regarding an application for FMLA. I reached a voicemail, and left a message asking her to return my call at ext [phone]. Encounter Details Date Type Department Care Team ([facility] Contact Info) Description 01/25/2025 Telephone [facility] MEDICINE [address] [place], [place] [phone] Khushboo Diaz MD [address] [place], [place] [phone] FMLA (I called the patient, regarding an application for FMLA. I reached a voicemail, and left a message asking her to return my call at ext [phone].) Social History Tobacco Use Types Packs/Day Years [...] t he electric, gas, oil or water [employer] threatened to shut off services in your [...] encounter Miscellaneous Notes * Telephone Encounter - Anna Marie Santo LPN - 02/01/2025 10:15 AM EDT Late entry: voicemail left by Melissa Madison on 01/27/25 and 02/01/25 with no call back. Melissa informed patient via voicemail that provider denied form and she would have to take her FMLA to the surgeon performing the surgery. Placed in red folder to await cherry picker operator from patient. * Telephone Encounter - Maribell Humphrey MA - 01/25/2025 2:43 PM EDT I called the patient, regarding an application for FMLA. I reached a voicemail, and left a message asking her to return my call at ext [phone]. documented in this encounter Plan of Treatment Upcoming Encounters Date Type Department Care Team (Late st Contact Info) Description 07/19/2025 1:00 PM EDT Office Visit [facility] ADULT DENTAL [address] [place] [address] [employer] [address] [place] [address] documented as of this encounter Visit Diagnoses Not on filedocumented in this encounter Additional Health Concerns Assessment Noted Time PHQ-9 Depression Total Score: 0 01/20/20 25 10:36 AM EDT documented as of this encounter Care Teams X Ray Physician Relationship Specialty Start Date End Date Khushboo Diaz MD [address] [place] [address] PCP - General Family Medicine 06/04/21 documented as of this encounter
--- OUTSIDE RECORDS SUMMARY | 2025-02-06 13:34 | XMS_ITS | Encounter Summary ---
Author Organization [employer] [facility] Address [address] 7t [place] [address] Care Team Providers Care Ethanol Quality Leader Name Role Phone Khushboo Diaz MD Primary Care Provider [phone] Encounter Details Date Type Department Care Team (Latest Contact Info) Description 10/23/2020 Abstract [facility] CONVERSIONS Dental, Provider, DDS Social [...] Care Team ( st Contact Info) Description 07/19/2025 1:00 PM EDT Office Visit [facility] ADULT DENTAL [address] [place] [address] Mekhi, Sammi [address] [place] [address] documented as of this encounter Visit Diagnoses Not on filedocumented in this encounter Care Teams Ethanol Quality Leader Relationship Specialty Start Date End Date Khushboo Diaz MD [address] [place] [address] PCP - General Family Medicine 06/04/21 documented as of this encounter
--- OUTSIDE RECORDS SUMMARY | 2025-02-06 13:34 | XMS_ITS | Encounter Summary ---
Author Organization [employer] [facility] Address [address] 7t [place] [address] Care Team Providers Care Plastic Bubble Packer Name Role Phone Khushboo Diaz MD Primary Care Provider [phone] Encounter Details Date Type Department Care Team (Latest Contact Info) Description 05/26/2022 Abstract [facility] CONVERSIONS Dental, Provider, DDS Social History [...] Description 07/19/2025 1:00 PM EDT Office Visit [facility] ADULT DENTAL [address] [place] [address] Mekhi, Sammi [address] [place] [address] documented as of this encounter Visit Diagnoses Not on filedocumented in this encounter Care Teams Plastic Bubble Packer Relationship Specialty Start Date End Date Khushboo Diaz MD [address] [place] [address] PCP - General Family Medicine 06/04/21 documented as of this encounter
--- OUTSIDE RECORDS SUMMARY | 2025-02-06 13:34 | XMS_ITS | Clinical Summary ---
Author Organization [employer] Address [address] [facility] 7t [place] [address] Care Team Providers Care Tap Dancer Name Role Phone Khushboo Diaz MD Primary Care Provider [phone] Allergies No known active allergies Medications * This document contains information received from the source organization and may not represent a complete record from that organization. carbamide peroxide (Debrox) 6.5 % otic solution Administer 5-10 drops into affected ear(s) 2 times daily for 4 days. 30 mL 01/25/20 25 025 Discontinued carbamide peroxide (Debrox) 6.5 % otic solutionIndica tions:Impacted cerumen of right ear Administer 5-10 drops into affected ear(s) 2 times daily for 4 days. 30 mL 01/25/20 25 025 ciprofloxacin- hydrocortisone (Cipro HC Otic) otic suspension Administer 3 drops into the right ear 2 times daily for 7 days. 10 mL 01/25/20 25 025 Discontinued ciprofloxacin- hydrocortisone (Cipro HC Otic) otic suspensionIndi cations:Acute reactive otitis externa of right ear Administer 3 drops into the right ear 2 times daily for 7 days. 10 mL 01/25/20 25 025 Active Problems Problem Noted Date Diagnosed Date Impacted cerumen of right ear 01/26/2025 Acute reactive otitis externa of right ear 01/26 Low back pain at multiple sites 07/27/2024 Assessment & Plan (07/27/2024 2:40 PM EDT): No red flags on history or exam Globus sensation 09/01/2023 Assessment & Plan (09/01/2023 9:41 AM EST): With diffuse fullness of thyroid on exam Will obtain TSH and refer for thyroid ultrasound Cubital tunnel syndrome on left 09/01/2023 Routine screening for STI (sexually transmitted infection) 04/22/2023 Class 1 obesity without seri ous comorbidity with body mass index (BMI) of 30.0 to 30.9 in adult 04/22/2023 Assessment & Plan (01/26/2025 8:07 AM EDT): Has met with finance business partner and with [facility] [place] Trying to lose more weight on her own with diet modifications alone Walk daily, diet low in saturated fat, processed foods Will undergo liposuction next month at ambulatory clinic, discussed risks of procedure and need for followup if signs of infection or bleeding occur Assessment & Plan (07/27/2024 2:39 PM EDT): Has met with finance business partner and with [facility] [place] Trying to lose more weight on her own with diet modifications alone Walk daily, diet low in saturated fat, processed foods Assessment & Plan (02/02/2024 3:07 PM EDT): Has met with finance business partner and with [facility] [place] [facility] Trying to lose more [...] Encounters Date Type Department Care Team Description 02/06/2025 Telephone [facility] [address] [place] [address] Khushboo Diaz MD Results 01/27/2025 Telephone [facility] [address] [place] [address] Khushboo Diaz MD Results 01/25/2025 Telephone [facility] [address] [place] [phone] Khushboo Diaz MD FMLA (I called the patient, regarding an application for FMLA. I reached a voicemail, and left a message asking her to return my call at ext [phone].) 01/24/2025 11:30 AM EDT Office Visit [facility] [address] [place] [phone] Khushboo Diaz MD Acute reactive otitis externa of right ear (Primary Dx); Dietary counseling; Exercise counseling; Class 1 obesity without serious comorbidity with body mass index (BMI) of 30.0 to 30.9 in adult, unspecified obesity type; Impacted cerumen of right ear 01/24/2025 Travel 01/19/2025 10:30 AM EDT Office Visit [address] [phone] Shayy Davis ANP Pre-op examination (Primary Dx); Need for hepatitis B screening test 01/19/2025 Orders Only [facility] [address] [place] [phone] Shayy Davis ANP 01/19/2025 Travel 01/17/2025 Telephone [facility] [address] [place] [phone] Leticia Stanley MA chart prep 12/16/2024 Population Health Risk Score [facility] () Department [address] [place] [address] [phone] Provider, Population Health Generic 12/12/2024 Telephone [facility] [address] [place] [phone] Khushboo Diaz MD Pre-op 12/08/2024 Telephone [facility] [address] [place] [phone] Khushboo Diaz MD triage : Appt request [...] Not Answered Alcohol Use Standard Drinks/Week Comments Not Currently 0 (1 standard drink = 0.6 oz pur e alcohol) oca Depression Answer Date Recorded Patient Health Questionnaire-9 Score 0 01/19/2025 Patient Health Questionnaire-9 Score 0 01/19/2025 Last PHQ-9: Questionnaire Data Not on file 0 01/19/2025 Housing Stability Answer Date Recorded What is your housing situation today? I have yelena elan 07/20/[address] you li [...] Sign Reading Time Taken Comments Blood Pressure 132/78 01/24/2025 11:55 AM EDT Pulse 77 01/24/2025 11:55 AM EDT Temperature 36.8 ??C (98.2 ??F) 01/24/2025 11:55 AM E DT Respiratory Rate 16 01/24/2025 11:55 AM EDT Oxygen Saturation 99% 01/24/2025 11:55 AM EDT Inhaled Oxygen Concentration - - Weight 78.7 kg (173 lb 6.4 oz) 01/24/2025 11:55 AM EDT Height 157.5 cm (5' 2 ) 01/24/2025 11:55 AM EDT Body Mass Index 31.72 01/24/2025 11:55 AM EDT Plan of Treatment Upcoming Encounters Date Type Department Care Team (Late st Contact Info) Description 07/19/2025 1:00 PM EDT Office Visit [facility] [address] [place] [address] Mekhi, Sammi [address] [place] [address] Health Maintenance Due Date Last Done Comments Hepatitis B Vaccines (1 of 3 - 19+ 3-dose series) 2009 Dental Oral Exam 11/27/2022 05/26/2022 Dental Prophylaxis 11/27/2022 05/26/2022 Dental X-Ray: Bitewings 05/27/2023 05/26/2022 Pap Smear 11/11/2024 11/11/2021 Influenza Vaccine (#1) 2025 Postp oned from 06/05/2024 (Patient Refused) SDOH Screening 07/20/2025 07/20/2024 Dental X-Ray: Full Mouth 09/16/2025 09/15/2022 Alcohol/Substance Use Screening 01/19/2026 01/19/2025 COVID-19 Vaccine ( season) 2026 05/15/2022, 03/07/2021, 02/06/2021 Postponed from 06/05/2024 (Patient Refused) Depression Screening 01/19/2026 01/19/2025, 01/20/20 Tobacco Screening 01/24/2026 01/24/2025 Family Planning (PISQ) 01/26/2026 01/26/2025 Lipid Panel 02/04/2026 02/04/2021 Cervical Cancer Screening 11/11/2026 HPV/Cotest 11/11/2026 11/11/2021 DTaP/Tdap/Td Vaccines (2 - Td or Tdap) 05/15/2032 05/15/2022 Zoster Vaccines (1 of 2) 2040 RSV Patients and Patients Aged 60 years or older (1 - 1-dose 75+ series) 2065 Hepatitis C Screening Completed 07/27/2024 , 04/20/2023, 02/04/2021 HIV Screening Completed 01/19/2025, 07/06, 04/20/2023, Additional history exists HIB Vaccines Aged Out No longer eligi [...] 49) Years) Aged Out No longer eligible based on [...] SLIDE REVIEW Routine 01/19/2025 11:31 AM EDT HEPATITIS B SURFACE ANTIBODY, QUALITATIVE Routine 01/19/2025 11:31 AM EDT Need for hepatitis B screening test HEPATITIS B SURFACE ANTIGEN, EIA Routine 01/19/2025 11:31 AM EDT Need for hepatitis B screening test HEPATITIS B CORE AB TOTAL Routine 01/19/2025 11:31 AM EDT Need for hepatitis B screening test HIV 1/2 ANTIGEN/ANTIBODY, FOURTH GENERATION W/RFL Routine 01/19/2025 11:31 AM EDT Pre-op examination TSH W/REFLEX TO FT4 [...] 1:36 PM EDT) Cancelled Coag SEE NOTE [facility] 01/19/2025 1:36 PM EDT 01/19/2025 1:36 PM EDT us Shayy FLETCHER HISTORICAL/NON ORDERABLE LABS Fi nal Result [facility] [address] [place] [address] [phone] * ECG 12 lead (01/19/2025 12:31 PM EDT) Narrative Shayy Davis ANP - 01/19/2025 12:31 PM EDT HR 71, QRS 90ms, QT/QTc 394/413, sinus, normal axis, no ischemic changes Shayy Davis ANP ECG ORDERABLES Final Result * Slide Review (01/19/2025 11:31 AM EDT) Slide Review VERIFIED [facility] 01/19/2025 11:3 1 AM EDT 01/19/2025 1:15 PM EDT Shayy Davis ANP LAB BLOOD ORDERABLES Final Resul t Performing Organization Address City/[facility] Co de Phone Number [facility] [address] [place] [phone] * TSH W/Reflex to FT4 (01/19/2025 11:31 AM EDT) TSH reflex Free T4 1.03 0.32 - 4.0 uIU/mL [facility] Blood Venous blood specimen / Unknown 01/19/2025 11:31 AM EDT 01/19/2025 1:15 PM EDT Shayy Davis [facility] LAB BLOOD ORDERABLES Final Resul t Performing Organization Address [facility] de Phone Number [facility] [address] [place] [phone] * CBC auto differential (01/19/2025 11:31 AM EDT) White Blood Count 6.2 4.8 - 10.8 X10*3/uL [facility] Red Blood Count 4.55 4.20 - 5.50 X10*6/uL [facility] Hemoglobin 13.5 12.0 - 16.0 g/dl [facility] Hematocrit 40.9 37.0 - 47.0 % [facility] Mean Corpuscular Volume 89.9 80.0 - 98.0 fL [facility] Mean Corpuscular Hemoglobin 29.7 27.0 - 33.0 pg [facility] Mean Corpuscular HGB Conc 33.0 31.0 - 35.0 g/dl [facility] Red Cell Distribution Width 13.1 11.0 - 16.0 % [facility] Platelet Count 284 160 - 400 X10*3/uL [facility] Mean Platelet Volume 11.1 9.4 - 12.3 fL [facility] Neutrophils Percent Auto 53.4 45 - 73 % [facility] Imm Gran Pct Auto 0.3 0.0 - 0.4 % [facility] Lymphocytes Percent Auto 34.6 20 - 40 % [facility] Monocytes Percent Auto 7.8 2 - 11 % [facility] Eosinophils Percent Auto 3.6 0 - 4 % [facility] Basophils Percent Auto 0.3 0 - 2 % [facility] NRBC Pct Auto 0.0 0.0 - 0.2 /100WBC [facility] Neutrophils Absolute Auto 3.3 2.0 - 8.3 x10*3/uL [facility] Imm Gran Abs Auto 0.02 0.00 - 0.03 X10*3/uL [facility] Lymphocytes Absolute Auto 2.1 1.2 - 4.9 X10*3/uL [facility] Monocytes Absolute Auto 0.5 0.1 - 1.2 X10*3/uL [facility] Eosinophils Absolute Auto 0.2 0.0 - 0.4 X10*3/uL [facility] Basophils Absolute Auto 0.0 0.0 - 0.2 X10*3/uL [facility] NRBC Abs Auto 0.000 0.0 - 0.012 X10*3/uL [facility] Blood Venous blood specimen / Unknown 01/19/2025 11:31 AM EDT 01/19/2025 1:15 PM EDT Shayy Davis [facility] LAB BLOOD ORDERABLES Edited Resu lt - Final [facility] [address] [place] [address] [phone] * Hepatitis B surface antigen, EIA (01/19/2025 11:31 AM EDT) Hepatitis B Surface Ag Negative Negative [facility] Blood Venous blood specimen / Unknown 01/19/2025 11:31 AM EDT 01/19/2025 1:15 PM EDT Shayy Davis ANP LAB BLOOD ORDERABLES Final Resul t Performing Organization Address [facility]/ZIP Co de Phone Number [facility] [address] [place] [phone] * Hepatitis B Core Antibody, Total (01/19/2025 11:31 AM EDT) Hepatitis B Core Antibody Nonreactive Nonreactive [facility] Blood Venous blood specimen / Unknown 01/19/2025 11:31 AM EDT 01/19/2025 1:15 PM EDT Shayy Davis [facility] LAB BLOOD ORDERABLES Final Resul t Performing Organization Address [facility] Co de Phone Number [facility] [address] [place] [phone] * HIV-1/2 Antigen and Antibodies, Fourth Generation, with Reflexes (01/19/2025 11:31 AM EDT) Pathologist [facility] HIV AB/AG Nonreactive Nonreactive [facility] Comment:HIV-1 p24 Ag and/or HIV-1/HIV-2 Ab not detected.A test result that is nonreactive does not exclude thepossibility of exposure to or infection with HIV-1 and/orHIV-2. Nonreactive results in this assay for individualswith prior exposure to HIV-1 and/or HIV-2 may be due toantigen and antibody levels that are below the limit ofdetection of this assay.The ExactFlat HIV Ag/Ab Combo assay result andsupplemental assay results should be interpreted inconjunction with the patient's clinical presentation,history and other laboratory results. If the results areinconsistent with clinical evidence, additional testing issuggested to confirm the result. Blood Venous blood specimen / Unknown 01/19/2025 11:31 AM EDT 01/19/2025 1:15 PM EDT Shayy Davis ANP LAB BLOOD ORDERABLES Final Resul t Performing Organization Address [facility] de Phone Number [facility] [address] [place] [phone] * Hepatitis B Surface Antibody, Qualitative (01/19/2025 11:31 AM EDT) ~Hepatitis B Surface Antibody NONREACTIVE Nonreactive [facility] Comment:Nonreactive: < 8.00 mIU/mL Blood Venous blood specimen / Unknown 01/19/2025 11:31 AM EDT 01/19/2025 1:15 PM EDT Shayy Davis [facility] LAB BLOOD ORDERABLES Final Resul t Performing Organization Address [facility] Phone Number [facility] [address] [place] [phone] * Comprehensive Metabolic Panel (01/19/2025 11:31 AM EDT) Pathologist [facility] Sodium 138 135 - 145 mmol/L [facility] Potassium 4.1 3.3 - 5.1 mmol/L [facility] Comment:Slight Hemolysis.Int erpret result with caution. Chloride 106 96 - 108 mmol/L [facility] Carbon Dioxide 24 22 - 29 mmol/L [facility] Anion Gap 12 12 - 20 [facility] Urea Nitrogen (BUN) 9 9 - 16 mg/dL [facility] Creatinine, Serum 0.62 0.5 - 1.4 mg/dL [facility] Estimated Glomerular Filt Rate >60 [facility] Comment:Chronic Kidney Disea se: Estimated GFR < 60 mL/min/1.70x9Krythg Kidney Disease: Estimated GFR < 15 mL/min/1.73m2 Glucose 90 60 - 115 mg/dL [facility] Calcium 9.1 8.4 - 10.2 mg/dL [facility] Bilirubin, Total 0.2 0.0 - 1.0 mg/dL [facility] Aspartate Amino Transferase 24 5 - 31 U/L [facility] Comment:Slight Hemolysis.Int erpret result with caution. Alanine Aminotransferase 13 0 - 31 U/L [facility] Total Protein 8.0 6.5 - 8.0 g/dL [facility] Albumin Level 4.2 3.5 - 5.0 g/dL [facility] Alkaline Phosphatase 53 39 - 117 U/L [facility] Blood Venous blood specimen / Unknown 01/19/2025 11:31 AM EDT 01/19/2025 1:15 PM EDT Shayy FLETCHER LAB BLOOD ORDERABLES Final Resul t Performing Organization Address [facility] Co de Phone Number [facility] [address] [place] [phone] * Hepatitis C Antibody with Reflex to HCV, RNA, Quantitative, Real-Time PCR (07/27/2024 2:55 PM EDT) Hepatitis C Antibody Nonreactive Nonreactive [facility] Comment:Antibodies to HCV no t detected; does not exclude early acuteHCV infection. Blood Venous blood specimen / Unknown 07/27/2024 2:55 PM EDT 07/27/2024 4:09 PM EDT Khushboo Diaz MD LAB BLOOD ORDERABLES Final Res ult Performing Organization Address [facility] Co de Phone Number [facility] [address] [place] [address] [phone] * THINPREP TIS PAP (11/11/2021 12:00 AM EST) Clinical Information: None given [facility] COMMENT SEE COMMENT [facility] [...] has been evaluated with computer assisted technology. [facility] Electric Truck Operator : SEE COMMENT [facility] Comment: WAC, CT(ASCP) CT screening location: [address] ??[phone] Infection Shift in vaginal marc suggestive of bacterial vaginosis. [facility] Interpretation/R esult: Negative for intraepithelial lesion or malignancy. [facility] LMP: NONE GIVEN [facility] Prev. BX: NONE GIVEN [facility] Prev. PAP: NONE GIVEN [facility] SOURCE: None given [facility] Statement Of Adequacy: SEE COMMENT [facility] Comment: Satisfactory for evaluation. Endocervical/transformation zone component absent. Age and/or menstrual status not provided 11/11/2021 Khushboo Diaz MD LAB PATHOLOGY ORDERABLES Final Result [facility] [address] * HPV mRNA E6/E7 REFLEX TO HPV 16, 18/45 (11/11/2021 12:00 AM EST) HPV nRNA E6/E7 Not Detected Not Detected [facility] Comment: Methodology: Certified Wellness Program Manager-Mediated Amplification This assay detects E6/E7 viral messenger RNA (mRNA) from 14 high-risk HPV types (16,18,31,33,35,39,45,51,52,56,58,59,66,68). ? The analytical performance characteristics of this assay have been determined by [employer]. The modifications have not been cleared or approved by the FDA. This assay has been validated pursuant to the CLIA regulations and is used for clinical purposes. ?? For additional information, please refer to http://education.S[employer]/faq/RXU789r3 (This link if provided for information/ educational purposes only.) 11/11/2021 us Khushboo Diaz MD LAB CYTOLOGY ORDERABLES Final Result Performing Organization Address [facility]/ZIP Co de Phone Number [facility] [address] * (ABNORMAL) LIPID PANEL, STANDARD (02/04/2021 11:59 AM EDT) Chol/HDLC Ratio 3.1 <5.0 (calc) [facility] [...] ?? Sohail GRIMM et al. MARIE. 2013;310(19): 7494-0203 ?? (http://education.[employer].Sensegon/faq/VRW253) Non-HDL Cholesterol 101 <130 mg/dL (calc) [facility] Comment: For patients with diabetes plus 1 major ASCVD risk ?? factor, treating to a non-HDL-C goal of <100 mg/dL ?? (LDL-C of <70 mg/dL) is considered a therapeutic ?? option. Triglycerides 74 <150 mg/dL [facility] 02/04/2021 11:5 9 AM EDT us Ragini Perry MD LAB BLOOD ORDERABLES Final Re sult Performing Organization Address [facility]/ZIP Co de Phone Number [facility] [address] from Last 3 Months or Most Recently Relevant to Health Maintenance Insurance [facility] C3 DENTAL-[facility] MEDICAID STAND ADULT Care Teams Tap Dancer Relationship Specialty Start Date End Date Khushboo Diaz MD [address] [place] [phone] PCP - General Family Medicine 06/04/21
--- OUTSIDE RECORDS SUMMARY | 2025-02-06 13:34 | XMS_ITS | Encounter Summary ---
Author Organization [employer] Address [address] [place] [address] Care Team Providers Care Aluminum Boat Inspector Name Role Phone Khushboo Diaz MD Primary Care Provider [phone] Reason for Visit * Reason Onset Date Comments Paperwork/Forms 09/04/2023 Encounter Details Date Type Department Care Team ([facility] Contact Info) Description 09/04/2023 Telephone [facility] [address] [place] [address] Khushboo Diaz MD [address] [place] [address] Paperwork/Forms Social History Tobacco Use Types Packs/Day [...] Description 07/19/2025 1:00 PM EDT Office Visit [facility] [address] [place] [address] Mekhi, Sammi [address] [place] [address] documented as of this encounter Visit Diagnoses Not on filedocumented in this encounter Care Teams Aluminum Boat Inspector Relationship Specialty Start Date End Date Khushboo Diaz MD [address] [place] [address] PCP - General Family Medicine 06/04/21 documented as of this encounter
[2025-02-06 13:35] LABS: Partial Thromboplastin Time 35.9 SEC (26.0-36.8)
== END 2025-02-06 11:54 | disposition home or self-care (01) ==
LOC: HO.HHCL 11:53
PROVIDERS: Visit Provider Nurse Practitioner Primary Care
DX: Z01.818 Encounter for other preprocedural examination (principal)
CPT/HCPCS: 36415; 85610; 85730